=== PATIENT | female | born 1995 | race Caucasian/White ===

== ENCOUNTER → 2017-03-19 | Outpatient (REF) | payer MEDICAID ==
[~2017-03-19] MED LIST: /CELE20CA PO; AMOX875T2 PO; AUGM875T27 PO; BUPR150T3 PO; COLA50CA3 PO; ESCI10TA2 PO; NEUR600T PO; NEXP1IMP SC; OXYC-208 PO
== END ==
LOC: M SFHCWAGY 15:37
PROVIDERS: ATTEND Nurse Practitioner Family
DX: R35.0 Frequency of micturition (principal); N92.1 Excessive and frequent menstruation with irregular cycle

== ENCOUNTER 2017-04-08 03:46 | Emergency (ER) | payer MEDICAID, OTHER ==
[~2017-04-08] VITALS: Ht 162.6 cm; Wt 95.5 kg
[2017-04-08 03:46] VITALS: BP 138/82
== END 2017-04-08 04:45 | disposition home or self-care (01) ==
LOC: M ED 03:46
DX: S69.91XA Unspecified injury of right wrist, hand and finger(s), initial encounter (principal); X58.XXXA Exposure to other specified factors, initial encounter; Y92.099 Unspecified place in other non-institutional residence as the place of occurrence of the external cause; Y93.89 Activity, other specified; Y99.9 Unspecified external cause status; F17.200 Nicotine dependence, unspecified, uncomplicated; Z79.3 Long term (current) use of hormonal contraceptives

== ENCOUNTER 2017-05-02 02:56 | Emergency (ER) | payer OTHER ==
[2017-05-02] MEDS: GI COCKTAIL 50ML BTL(HYOSCYAMINE/MAALOX/LIDOCAINE VISCOUS)(1:3:1) PO (03:52)
== END 2017-05-02 04:24 | disposition home or self-care (01) ==
LOC: M ED 02:56
DX: R10.13 Epigastric pain (principal); K21.9 Gastro-esophageal reflux disease without esophagitis; F17.210 Nicotine dependence, cigarettes, uncomplicated
CPT/HCPCS: 99283

== ENCOUNTER → 2017-05-20 | Outpatient (REF) | payer OTHER | LOC: M LAB REF 15:42 | DX: F41.8 Other specified anxiety disorders (principal) ==

== ENCOUNTER → 2017-06-04 | Outpatient (CLI) | payer OTHER | LOC: M WHC 14:59 | DX: R10.2 Pelvic and perineal pain (principal) | CPT/HCPCS: 76830 ==

== ENCOUNTER 2017-06-09 00:01 | Emergency (ER) | payer OTHER | END 2017-06-09 01:04 | disposition left against medical advice (07) | LOC: M ED 00:01 | DX: S69.90XA Unspecified injury of unspecified wrist, hand and finger(s), initial encounter (principal); X58.XXXA Exposure to other specified factors, initial encounter; Y92.9 Unspecified place or not applicable; Y93.9 Activity, unspecified; Z53.21 Procedure and treatment not carried out due to patient leaving prior to being seen by health care provider ==

== ENCOUNTER → 2017-10-09 | Outpatient (REF) | payer OTHER ==
[2017-10-09 17:08] LABS: TOTAL 25(OH) VITAMIN D 15.4 NG/ML (30.0-100.0)
[2017-10-13 00:11] LABS: TISSUE TRANSGLUTAMINASE IgA <2 U/mL (0-3)
== END ==
LOC: M LAB REF 16:25
DX: E55.9 Vitamin D deficiency, unspecified (principal)

== ENCOUNTER → 2017-10-30 | Outpatient (CLI) | payer OTHER | LOC: M WUC 15:09 | DX: S93.402A Sprain of unspecified ligament of left ankle, initial encounter (principal); X58.XXXA Exposure to other specified factors, initial encounter; Y92.89 Other specified places as the place of occurrence of the external cause; Y93.9 Activity, unspecified; Y92.9 Unspecified place or not applicable | CPT/HCPCS: 73610 ==

== ENCOUNTER 2018-04-17 13:39 | Emergency (ER) | payer OTHER ==
[2018-04-17 14:31] LABS: HEMATOCRIT 48.8 % (36.0-47.0); HEMOGLOBIN 16.7 g/dl (12.0-15.5); MEAN CORPUSCULAR HEMOGLOBIN 29.9 pg (27.0-33.0); MEAN CORPUSCULAR HGB CONC 34.2 g/dl (32.0-36.5); MEAN CORPUSCULAR VOLUME 87.3 fl (80.0-96.0); PLATELET COUNT, AUTOMATED 314 10^3/uL (150-450); RED BLOOD COUNT 5.59 10^6/uL (4.00-5.40); RED CELL DISTRIBUTION WIDTH 13.4 % (11.5-14.5); WHITE BLOOD COUNT 13.6 10^3/uL (4.0-10.0)
[2018-04-17 14:56] LABS: ANION GAP 12 MEQ/L (8-16); BLOOD UREA NITROGEN 8 MG/DL (7-18); CALCIUM LEVEL 8.8 MG/DL (8.5-10.1); CARBON DIOXIDE LEVEL 23 MEQ/L (21-32); CHLORIDE LEVEL 105 MEQ/L (98-107); CPK CREATINE PHOSPHOKINASE 469 U/L (26-192); CREATININE FOR GFR 0.71 MG/DL (0.55-1.30); GLOMERULAR FILTRATION RATE > 60.0 (>60); GLUCOSE, FASTING 86 MG/DL (70-100); HCG, SERUM QUANTITATIVE < 1.0 MIU/ML; POTASSIUM SERUM 3.6 MEQ/L (3.5-5.1); SODIUM LEVEL 140 MEQ/L (136-145)
[2018-04-17] MEDS: NS 1,000 ML IV (15:31)
[2018-04-17] MEDS: KETOROLAC 30 MG/ML VIAL (J1885) IV (15:31)
== END 2018-04-17 17:34 | disposition home or self-care (01) ==
LOC: M ED 13:39
DX: T79.6XXA Traumatic ischemia of muscle, initial encounter (principal); Y04.8XXA Assault by other bodily force, initial encounter; Y92.008 Other place in unspecified non-institutional (private) residence as the place of occurrence of the external cause; Y07.499 Other family member, perpetrator of maltreatment and neglect; F33.9 Major depressive disorder, recurrent, unspecified; E55.9 Vitamin D deficiency, unspecified; Z79.3 Long term (current) use of hormonal contraceptives; Z79.899 Other long term (current) drug therapy; F17.210 Nicotine dependence, cigarettes, uncomplicated
CPT/HCPCS: J1885

== ENCOUNTER → 2018-08-30 | Outpatient (CLI) | payer OTHER ==
[~2018-08-30] MED LIST changes: -/CELE20CA PO; +CELE1CAP4 PO; +DEBL1TAB; +IBUP-1022 PO; +OMEP40CA2 PO; +TRAZ-160
== END ==
LOC: M LAB 15:19
PROVIDERS: ATTEND Nurse Practitioner Adult Health
DX: N92.5 Other specified irregular menstruation (principal)

== ENCOUNTER → 2018-10-15 | Outpatient (REF) | payer OTHER ==
[~2018-10-15] MED LIST changes: -TRAZ-160; +TRAZ-252
[2018-10-15 17:54] LABS: CHLAMYDIA DNA AMPLIFICATION NEGATIVE (NEGATIVE); GC DNA AMPLIFICATION NEGATIVE (NEGATIVE)
== END ==
LOC: M SFHCWAGY 14:44
PROVIDERS: ATTEND Nurse Practitioner Family
DX: Z11.3 Encounter for screening for infections with a predominantly sexual mode of transmission (principal)

== ENCOUNTER 2018-12-02 11:43 | Emergency (ER) | payer OTHER ==
[~2018-12-02] VITALS: Ht 160 cm; Wt 114.8 kg
[2018-12-02] MEDS ORDERED: GABA-843 (11:51)
[2018-12-02] MEDS ORDERED: NS 1,000 ML IV ONE (12:15)
[2018-12-02 12:38] LABS: BILIRUBIN, URINE MANUAL N (NEGATIVE); GLUCOSE, URINE (UA) MANUAL N mg/dL (NEGATIVE); KETONE, URINE MANUAL 2+ mg/dL (NEGATIVE); UROBILINOGEN, URINE MANUAL N mg/dl (NORMAL)
[2018-12-02 12:41] LABS: BACTERIA, URINE NONE SEEN; RBC, URINE NONE SEEN /hpf (0-3); SQUAMOUS EPITHELIAL CELL URINE SMALL AMOUNT /hpf (SMALL AMT)
[2018-12-02 12:42] LABS: HYALINE CAST, URINE NONE SEEN /lpf (0-1); MUCUS, URINE SMALL AMOUNT (NEGATIVE)
[2018-12-02 12:56] LABS: HEMATOCRIT 39.7 % (36.0-47.0); HEMOGLOBIN 13.5 g/dl (12.0-15.5); MEAN CORPUSCULAR HEMOGLOBIN 29.3 pg (27.0-33.0); MEAN CORPUSCULAR VOLUME 86.3 fl (80.0-96.0); PLATELET COUNT, AUTOMATED 188 10^3/uL (150-450); WHITE BLOOD COUNT 12.7 10^3/uL (4.0-10.0)
[2018-12-02 13:04] LABS: ALBUMIN 3.1 GM/DL (3.2-5.2); BILIRUBIN,DIRECT 0.2 MG/DL (0.0-0.2); BILIRUBIN,TOTAL 0.4 MG/DL (0.2-1.0); TOTAL PROTEIN 6.5 GM/DL (6.4-8.2)
[2018-12-02 13:38] LABS: ANISOCYTOSIS 1+; ATYPICAL LYMPH 5 % (0-5); LYMPHOCYTES 47 % (16-52); MONOCYTES 3 % (0-8); NEUTROPHILS 43 % (35-75); PLATELET ESTIMATE NORMAL (NORMAL)
--- NOTE | 2018-12-02 13:51 | REP ---
Clinical: Upper abdominal pain. Technique: Real time maya scale ultrasound examination using curved array transducer. Findings: Liver and visualized pancreas are normal in contour, size, echogenicity without focal hepatic or pancreatic lesion identified. The gallbladder is moderately distended without gallstones, wall thickening, or pericholecystic fluid. No biliary ductal dilatation is appreciated and the common bile duct measures 2.7 mm diameter. The right kidney is normal in reniform shape and measures 10.2 x 4.3 x 5.5 cm without hydronephrosis. No ascites in the visualized right upper quadrant. Impression: Essentially normal right upper quadrant ultrasound examination. Electronically Signed by Jayden Norris MD 12/02/2018 01:43 P
[2018-12-02] MEDS ORDERED: ISOVUE-370 76% 100ML VIAL (Q9967) As Ordered ONE (14:13)
--- NOTE | 2018-12-02 14:40 | REP ---
Clinical: Acute abdominal pain. Technique: Axial contrast enhanced images from the lung bases to the pubic symphysis using 100 ml Isovue 370 intravenous contrast material with coronal and sagittal re-formations. Comparison: 06/29/2013. Findings: Lung bases are clear. Visualized heart and pericardium normal. Mild fatty infiltration to the liver. Spleen, pancreas, gallbladder, bilateral adrenal glands and kidneys are normal. The enteric system is without obstruction or acute inflammatory process. Scattered colonic diverticula noted without acute diverticulitis. Pelvis demonstrates normal bladder and age-appropriate uterus/adnexa. No ascites. No free air. No adenopathy. Abdominal aorta and vasculature normal. Surrounding musculoskeletal structures are intact. Impression: No acute abdominopelvic pathology appreciated. Hepatic steatosis. Electronically Signed by Jayden Norris MD 12/02/2018 02:31 P
[2018-12-02] MEDS ORDERED: OMEP40CA2 PO (15:34)
[2018-12-02 15:42] VITALS: BP 123/78
== END 2018-12-02 15:44 | disposition home or self-care (01) ==
LOC: M ED 11:43
DX: R10.13 Epigastric pain (principal); J45.909 Unspecified asthma, uncomplicated; F33.9 Major depressive disorder, recurrent, unspecified; K21.9 Gastro-esophageal reflux disease without esophagitis; K76.0 Fatty (change of) liver, not elsewhere classified; Z79.899 Other long term (current) drug therapy; F17.210 Nicotine dependence, cigarettes, uncomplicated
CPT/HCPCS: 74177; 76705; 80047; 80076; 81000; 83690; 84702; 85025; 87086; 96360; 96361; 99284; Q9967

== ENCOUNTER → 2018-12-06 | Outpatient (REF) | payer OTHER ==
[~2018-12-06] MED LIST changes: +GABA-843
[2018-12-06 20:50] LABS: CHLAMYDIA DNA AMPLIFICATION NEGATIVE (NEGATIVE); GC DNA AMPLIFICATION NEGATIVE (NEGATIVE)
== END ==
LOC: M LAB REF 16:45
PROVIDERS: ATTEND Nurse Practitioner Adult Health
DX: N89.8 Other specified noninflammatory disorders of vagina (principal)

== ENCOUNTER → 2019-05-28 | Outpatient (REF) | payer OTHER ==
[~2019-05-28] MED LIST changes: -OMEP40CA2 PO; +OMEP40CA97 PO
== END ==
LOC: M LAB REF 19:18
PROVIDERS: ATTEND Physician Assistant
DX: J02.9 Acute pharyngitis, unspecified (principal)

== ENCOUNTER → 2019-06-17 | Outpatient (REF) | payer OTHER ==
[2019-06-17 18:47] LABS: CHLAMYDIA DNA AMPLIFICATION NEGATIVE (NEGATIVE); GC DNA AMPLIFICATION NEGATIVE (NEGATIVE)
== END ==
LOC: M WHC 16:48
PROVIDERS: ATTEND Nurse Practitioner Family
DX: Z11.3 Encounter for screening for infections with a predominantly sexual mode of transmission (principal)

== ENCOUNTER → 2019-12-28 | Outpatient (CLI) | payer OTHER ==
[~2019-12-28] MED LIST changes: +FLUTISP; -GABA-843; +GABA-843 PO; +NORG1TAB33 PO; +PANT40TA29 PO
== END ==
LOC: M OUTALCOH 08:07
PROVIDERS: ATTEND Psychiatry & Neurology Addiction Medicine
DX: Z03.89 Encounter for observation for other suspected diseases and conditions ruled out (principal)

== ENCOUNTER 2020-01-04 13:55 | Outpatient (RCR) | payer MEDICAID ==
[~2020-01-04 13:55] MED LIST changes: -FLUTISP; -NORG1TAB33 PO; -PANT40TA29 PO
[2020-02-14] MEDS ORDERED: FLUTISP (09:41)
[2020-02-14] MEDS ORDERED: NORG1TAB33 PO (09:41)
[2020-02-14] MEDS ORDERED: PANT40TA29 PO (09:41)
== END 2020-02-01 ==
LOC: M OUTALCOH 13:55
PROVIDERS: ATTEND Psychiatry & Neurology Addiction Medicine
DX: Z03.89 Encounter for observation for other suspected diseases and conditions ruled out (principal)

== ENCOUNTER → 2020-02-16 | Outpatient (CLI) | payer MEDICAID ==
[~2020-02-16] MED LIST changes: +FLUTISP; +NORG1TAB33 PO; +PANT40TA29 PO
== END ==
LOC: M LABSMTC 11:53
PROVIDERS: ATTEND Anesthesiology
DX: Z01.812 Encounter for preprocedural laboratory examination (principal); Z20.828 Contact with and (suspected) exposure to other viral communicable diseases
CPT/HCPCS: C9803; U0003

== ENCOUNTER 2020-02-21 14:34 | Day surgery (SDC) | payer MEDICAID, OTHER ==
[~2020-02-21] VITALS: Ht 162.6 cm; Wt 117.0 kg
[~2020-02-21 14:34] MED LIST changes: +LIDOCAINE 2% 100MG/5ML SDV (FOR ANES.) As Ordered ONE; +NS 1,000 ML IV ONE; +propofoL 200 MG/20 ML VIAL As Ordered ONE
[2020-02-21] MEDS ORDERED: fentaNYL 100 MCG/2 ML INJECTION (J3010) As Ordered ONE (16:20)
[2020-02-21] MEDS ORDERED: ONDANSETRON 4MG/2ML VIAL As Ordered ONE (16:32)
--- NOTE | 2020-02-21 16:49 | ROOR ---
Patient Name: Lela Hanson Procedure Date: 02/21/2020 4:17 PM Date of : 1995 Age: 24 Room: [facility] Gender: Female Note Status: Finalized Procedure: Upper GI endoscopy Indications: Dyspepsia, Suspected gastro-esophageal reflux disease Providers: Lai Deluna MD Referring MD: Geena VILLARREAL NP Requesting Provider: Medicines: Monitored Anesthesia Care Complications: No immediate complications. Procedure: Pre-Anesthesia Assessment: - Prior to the procedure, a History and Physical was performed, and patient medications and allergies were reviewed. The patient is competent. The risks and benefits of the procedure and the sedation options and risks were discussed with the patient. All questions were answered and informed consent was obtained. Patient identification and proposed procedure were verified by the physician and the nurse in the procedure room. Mental Status Examination: alert and oriented. Airway Examination: normal oropharyngeal airway and neck mobility. Respiratory Examination: clear to auscultation. CV Examination: normal. Prophylactic Antibiotics: The patient does not require prophylactic antibiotics. Prior Anticoagulants: The patient has taken no previous anticoagulant or antiplatelet agents. ASA Grade Assessment: II - A patient with mild systemic disease. After reviewing the risks and benefits, the patient was deemed in satisfactory condition to undergo the procedure. The anesthesia plan was to use monitored anesthesia care (MAC). Immediately prior to administration of medications, the patient was re-assessed for adequacy to receive sedatives. The heart rate, respiratory rate, oxygen saturations, blood pressure, adequacy of pulmonary ventilation, and response to care were monitored throughout the procedure. The physical status of the patient was re-assessed after the procedure. The Endoscope was introduced through the mouth, and advanced to the second part of duodenum. The upper GI endoscopy was accomplished without difficulty. The patient tolerated the procedure well. Findings: The Z-line was irregular and was found 38 cm from the incisors. Scattered mild inflammation characterized by erythema and granularity was found in the gastric antrum. Biopsies were taken with a cold forceps for Helicobacter pylori testing. Verification of patient identification for the specimen was done by the physician and nurse using the patient's name, date and medical record number. Estimated blood loss was minimal. No gross lesions were noted in the duodenal bulb, in the second portion of the duodenum and in the area of the papilla. Biopsies for histology were taken with a cold forceps for evaluation of celiac disease. Impression: - Z-line irregular, 38 cm from the incisors. - Gastritis. Biopsied. - No gross lesions in the duodenal bulb, in the second portion of the duodenum and in the area of the papilla. Biopsied. Recommendation: - Patient has a contact number available for emergencies. The signs and symptoms of potential delayed complications were discussed with the patient. Return to normal activities tomorrow. Written discharge instructions were provided to the patient. - High fiber diet. - Continue present medications. - Await pathology results. - Follow an antireflux regimen. - Telephone GI clinic for pathology results in 2 weeks. - Return to primary care physician. Lai Deluna MD Lai Deluna MD 02/21/2020 4:48:42 PM Electronically signed by Lai Deluna MD Number of Addenda: 0 Note Initiated On: 02/21/2020 4:17 PM Estimated Blood Loss: Estimated blood loss was minimal.
[2020-02-21 17:15] VITALS: BP 129/78
== END 2020-02-21 17:14 | disposition home or self-care (01) ==
LOC: M OPP 14:34
PROVIDERS: ATTEND Internal Medicine Gastroenterology
DX: K22.8 Other specified diseases of esophagus (principal); K29.70 Gastritis, unspecified, without bleeding; R10.13 Epigastric pain; F17.210 Nicotine dependence, cigarettes, uncomplicated; Z79.899 Other long term (current) drug therapy
CPT/HCPCS: 43239; 88305; J2405; J3010

== ENCOUNTER → 2020-06-26 | Outpatient (REF) | payer OTHER ==
[~2020-06-26] MED LIST changes: -BUPR150T3 PO; +BUPR150T4 PO; +ESCI10TA16 PO; -ESCI10TA2 PO; +GABA-282 PO; -GABA-843 PO; -LIDOCAINE 2% 100MG/5ML SDV (FOR ANES.) As Ordered ONE; -NS 1,000 ML IV ONE; -propofoL 200 MG/20 ML VIAL As Ordered ONE
[2020-06-26 19:50] LABS: HEPATITIS C VIRUS ABY INDEX < 0.0 INDEX (<0.8); HIV 1&2 SCREEN CENTAUR NEGATIVE (NEGATIVE)
[2020-06-26 19:56] LABS: CHLAMYDIA DNA AMPLIFICATION NEGATIVE (NEGATIVE); GC DNA AMPLIFICATION NEGATIVE (NEGATIVE)
== END ==
LOC: M PLALAB 15:17
PROVIDERS: ATTEND Nurse Practitioner Family
DX: Z11.3 Encounter for screening for infections with a predominantly sexual mode of transmission (principal)

== ENCOUNTER → 2020-07-25 | Outpatient (REF) | payer OTHER ==
[~2020-07-25] MED LIST changes: +BUPR150T12 PO; -BUPR150T4 PO
== END ==
LOC: M PLALAB 15:21 → M SFHCWAGY 15:21
PROVIDERS: ATTEND Nurse Practitioner Family
DX: N92.6 Irregular menstruation, unspecified (principal)

== ENCOUNTER → 2020-08-10 | Outpatient (REF) | payer OTHER ==
[2020-08-10 18:12] LABS: BASO % 0.3 % (0.0-1.0); EOS # 0.3 10^3/uL (0.0-0.5); EOS % 2.4 % (0.0-3.0); HEMATOCRIT 45.7 % (36.0-47.0); HEMOGLOBIN 14.9 g/dl (12.0-15.5); LYMPH # 4.1 10^3/uL (1.5-5.0); LYMPH % 34.7 % (24.0-44.0); MEAN CORPUSCULAR HEMOGLOBIN 29.7 pg (27.0-33.0); MEAN CORPUSCULAR HGB CONC 32.6 g/dl (32.0-36.5); MONO # 0.6 10^3/uL (0.0-0.8); MONO % 4.9 % (2.0-8.0); NEUTROPHILS # 6.8 10^3/uL (1.5-8.5); NEUTROPHILS % 57.4 % (36.0-66.0); PLATELET COUNT, AUTOMATED 320 10^3/uL (150-450); RED BLOOD COUNT 5.02 10^6/uL (4.00-5.40); WHITE BLOOD COUNT 11.8 10^3/uL (4.0-10.0)
[2020-08-10 18:44] LABS: ALBUMIN 3.8 GM/DL (3.2-5.2); ALT/SGPT 21 U/L (12-78); BILIRUBIN,TOTAL 0.2 MG/DL (0.2-1.0); BLOOD UREA NITROGEN 10 MG/DL (7-18); CARBON DIOXIDE LEVEL 26 MEQ/L (21-32); CHLORIDE LEVEL 109 MEQ/L (98-107); CREATININE FOR GFR 0.57 MG/DL (0.55-1.30); GLOMERULAR FILTRATION RATE > 60.0 (>60); GLUCOSE, FASTING 76 MG/DL (70-100); POTASSIUM SERUM 4.3 MEQ/L (3.5-5.1); SODIUM LEVEL 140 MEQ/L (136-145)
[2020-08-10 19:38] LABS: H PYLORI QUALITATIVE IgG DETECTED (NEGATIVE)
== END ==
LOC: M LAB REF 17:01
PROVIDERS: ATTEND Physician Assistant
DX: R10.13 Epigastric pain (principal)

== ENCOUNTER → 2021-02-14 | Outpatient (CLI) | payer OTHER ==
[~2021-02-14] MED LIST changes: +FAMO40TA3 PO; +OMEP40CA4 PO; -OMEP40CA97 PO
== END ==
LOC: M LABSMTC 09:28
PROVIDERS: ATTEND Anesthesiology
DX: Z01.812 Encounter for preprocedural laboratory examination (principal); Z20.822 Contact with and (suspected) exposure to COVID-19

== ENCOUNTER 2021-02-18 11:54 | Day surgery (SDC) | payer OTHER ==
[~2021-02-18] VITALS: Ht 162.6 cm; Wt 92.0 kg
[~2021-02-18 11:54] MED LIST changes: +NS 1,000 ML IV ONE
--- OUTSIDE RECORDS SUMMARY | 2021-02-18 12:05 | CCD | Continuity of Care Document ---
Author Author Lela VARELA M.D. Organization Unknown Address [address], [address] [place] [address] Phone [phone] Care Team Providers Care [employer] Name Role Phone Geena Oscar AUTM [phone] [facility] Audiology AUTM [phone] Ann Naylor P.A.-C. AUTM Problems Active Problems Provider Date Chronic otitis media Henry Pena MD Onset: 11/07/2013 Unilateral conductive hearing loss Henry Pena MD Ons et: 11/07/2013 Chronic mucoid otitis media Henry Pena MD Onset: 10/2013 Deviated nasal septum Henry Pena MD Onset: 4 Central perforation of tympanic membrane DENISE Peace II Onset: 02/20/2014 Otorrhea Stephen Matt II, PA-C Onset: 02/20/2014 Eustachian tube disorder Roland Boucher MD Onset: 02/23/20 18 Tobacco use Roland Boucher MD Onset: 02/22/2018 Social History Type Date Description Comments Sex Unknown Tobacco Use Start: Unknown currently smokes 1/2 Pack Daily Smokeless Tobacco Never Used Smokeless Tobacco ETOH Use Denies alcohol use Tobacco Use Start: Unknown Smokes 1/2 Pack A Day Recreational Drug Use Denies Drug Use Allergies, Adverse Reactions, Alerts Description No Known Drug Allergies Medications Active Medications SIG Qnty Indications Ordering Provide r Date Sucralfate 1gm Tablets 1tab p o bid Unknown Pantoprazole Sodium 40mg Tablets D R twice daily -- one tablet in morning 1/2 hour before breakfast and one tablet prior to bedtime. total course 3 months. 60tabs Lai Lockhart ala, M.D. Gabapentin 600mg Tablets 1tab po tid Unknown Immunizations Description No Information Available Vital Signs Date Vital Result Comment 12/26/2019 10:55am BP Systolic 134 mmHg BP Diastolic 78 mmHg Height 64 inches 5'4" Weight 252.00 lb BMI (Body Mass Index) 43.3 kg/m2 [place] Body Weight 120 lb Weight 114.307 kg BSA (Body Surface Area) 2.16 m2 02/22/2018 10:10am Height 63 inches 5'3" Weight 240.00 lb BMI (Body Mass Index) 42.5 kg/m2 [place] Body Weight 115 lb Weight 108.864 kg BSA (Body Surface Area) 2.09 m2 Results Description No Information Available Procedures Description No Information Available Medical Devices Description No Information Available Encounters Description No Information Available Assessments Description No Information Available Plan of Treatment 12/26/2019 - Lai Varela M.D.* K21.0 Gastro-esophageal reflux disease with esophagitis * R10.13 Epigastric pain * * New Orders:* Endoscopy, Ordered: 12/26/19 * Comments:* Impression:-- Chronic acid reflux with worsening symptoms and dyspepsia -- need to r/o GERD with Esophagitis vs Esophageal ulcers vs PUD vs H. pylori vs celiac disease. * Recommendations:* -- Patient educated on the differential diagnoses in detail and all questions answered. 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 -- Anti reflux measures reinforced; Advised to avoid being overweight/obese; avoid acid reflux inducing food: excessive caffeine, chocolate, alcohol, peppermint and fatty foods; , Avoid large and late meal: eating three or more hours before bedtime. Printed material provided to patient. -- Will schedule for EGD. The procedure, its indications, risks (bleeding, perforation, infection, hypotension, respiratory depression, allergy, need for endotracheal intubation, surgery, or even ), benefits, limitations (e.g., missing a lesion), and the alternatives (radiographic studies) were explained to the patient who understood and agreed for the test.. -- Post procedure appointment based on EGD findings. -- Follow up with PMD for routine medical care and other age appropriate health maintenance. Functional Status Description No Information Available Mental Status Description No Information Available Referrals Refer to Reason for Referral Status Appt Date Lai Varela M.D. B96.81 HELICOBACTER PYLORI CAUSE OF DISEASES CLASSIFIED ELSEWHERE Created [facility] [address], [place] [address] [phone]
--- OUTSIDE RECORDS SUMMARY | 2021-02-18 12:05 | CCD | Continuity of Care Document ---
Author Author Lela VARELA M.D. Organization Unknown Address [address], [address] [place] [address] Phone [phone] Care Team Providers Care [employer] Manager Name Role Phone Geena Oscar AUTM [phone] [facility] Audiology AUTM [phone] Ann Naylor P.A.-C. AUTM [phone] Problems Active Problems Provider Date Chronic otitis [...] SIG Qnty Indications Ordering Provide r Date Pylera [phone] Capsules 3 caps by mouth together, four times a day for 10 days course.(for h. pylori. take after eating to avoid stomach upset) 120caps B96.81 Lai murray M.D. 12/24/2020 Pantoprazole Sodium 40mg Tablets D R twice daily -- one tablet in morning 1/2 hour before breakfast and one tablet prior to bedtime. total course 3 months. 60tabs Lai Lockhart ala, M.D. Gabapentin 600mg Tablets 1tab po tid Unknown Immunizations Description No Information Available Vital Signs Date Vital Result Comment 12/24/2020 4:24pm BP Systolic 120 mmHg BP Diastolic 66 mmHg Height 64 inches 5'4" Weight 200.00 lb BMI (Body Mass Index) 34.3 kg/m2 [place] Body Weight 120 lb Weight 90.720 kg BSA (Body Surface Area) 1.96 m2 12/26/2019 10:55am BP Systolic 134 mmHg BP Diastolic 78 mmHg Height 64 inches 5'4" Weight 252.00 lb BMI (Body Mass Index) 43.3 kg/m2 [place] Body Weight 120 lb Weight 114.307 kg BSA (Body Surface Area) 2.16 m2 Results Description No Information Available Procedures Date Code Description Status 12/24/2020 413[address] Office/Outpatient New Moderate M DM 45-59 Minutes Completed Medical Devices Description No Information Available Encounters Type Date Location Provider Dx Diagnosis Office Visit 12/24/2020 3:40p [facility] Lai Varela M.D. B96.81 Helicobacter pylori as the c ause of diseases classd elswhr K29.70 Gastritis, unspecified, with out bleeding R10.13 Epigastric pain R19.4 Change in bowel habit Assessments Date Code Description Provider 12/24/2020 B96.81 Helicobacter pylori [H. pylori] as the cause of diseases classified elsewhere Lai Varela M.D. 12/24/2020 K29.70 Gastritis, unspecified, without bleeding Lai Varela M.D. 12/24/2020 R10.13 Epigastric pain Lai Lockhart ala, M.D. 12/24/2020 R19.4 Change in bowel habit Lai Varela M.D. Plan of Treatment Future Appointment(s):* 02/18/2021 2:00 am - Lai Varela M.D. at [facility] 12/24/2020 - Lai Varela M.D.* B96.81 Helicobacter pylori [H. pylori] as the cause of diseases classified elsewhere * K29.70 Gastritis, unspecified, without bleeding * R10.13 Epigastric pain * R19.4 Change in bowel habit * * New Medication:* Pylera 140-125-125 mg * New Orders:* Endoscopy, Ordered: 12/24/20 * Comments:* Impression:-- Chronic acid reflux with worsening symptoms and dyspepsia -- need to r/o GERD with Esophagitis vs Esophageal ulcers vs PUD vs H. pylori vs celiac disease. * Recommendations:* -- Patient educated on the differential diagnoses in detail and all questions answered. -- Will give pylera therapy in view of the persistent symptoms and unclear if patient got the complete therapy/ eradication of H. pylori. -- Educated patient to take pantoprazole 40 mg twice daily for now. 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 -- Anti reflux measures reinforced; -- Will schedule for repeat EGD with biopsies and Colonoscopy. The procedures, indications, risks (bleeding, perforation, infection, hypotension, respiratory depression, allergy, need for endotracheal intubation, surgery, or even ), benefits, limitations (e.g., missing a lesion), and the alternatives (radiographic studies) were explained to the patient who understood and agreed for the tests.. -- Follow up in GI clinic after the above in 4-6 weeks. -- Follow up with PMD for routine medical care and other age appropriate health main tenance. Functional Status Description No Information Available Mental Status Description No Information Available Referrals Refer to Reason for Referral Status Appt Date Lai Varela M.D. B96.81 HELICOBACTER PYLORI CAUSE OF DISEASES CLASSIFIED ELSEWHERE Created [facility] [address], [address] [place] [address] [phone]
--- OUTSIDE RECORDS SUMMARY | 2021-02-18 12:06 | CCD ---
Author Author [facility] Organization [facility] Address Unknown Phone Unavailable Care Team Providers Care Sales Account Coordinator Name Role Phone Oscar, E Geena TIMBER PACKER Unavailable Unavailable Oscar, E Geena TIMBER PACKER Unavailable Unavailable Oscar, E Geena TIMBER PACKER Unavailable Unavailable Oscar, E Geena TIMBER PACKER Unavailable Unavailable Oscar, E Geena TIMBER PACKER Unavailable Unavailable Oscar, E Geena TIMBER PACKER Unavailable Unavailable Oscar, E Geena TIMBER PACKER Unavailable Unavailable Oscar, E Geena TIMBER PACKER Unavailable Unavailable Oscar, E Geena TIMBER PACKER Unavailable Unavailable Oscar, E Geena TIMBER PACKER Unavailable Unavailable Oscar, E Geena TIMBER PACKER Unavailable Unavailable Oscar, E Geena TIMBER PACKER Unavailable Unavailable Oscar, E Geena TIMBER PACKER Unavailable Unavailable Oscar, E Geena TIMBER PACKER Unavailable Unavailable Oscar, E Geena TIMBER PACKER Unavailable Unavailable Oscar, E Geena TIMBER PACKER Unavailable Unavailable Oscar, E Geena TIMBER PACKER Unavailable Unavailable Oscar, E Geena TIMBER PACKER Unavailable Unavailable Oscar, E Geena TIMBER PACKER Unavailable Unavailable Oscar, E Geena TIMBER PACKER Unavailable Unavailable Oscar, E Geena TIMBER PACKER Unavailable Unavailable Oscar, E Geena TIMBER PACKER Unavailable Unavailable Oscar, E Geena TIMBER PACKER Unavailable Unavailable CORRALES, G EDWARD RPA Unavailable Unavailable CORRALES, G EDWARD RPA Unavailable Unavailable CORRALES, G EDWARD RPA Unavailable Unavailable CORRALES, G EDWARD RPA Unavailable Unavailable CORRALES, G EDWARD RPA Unavailable Unavailable CORRALES, G EDWARD RPA Unavailable Unavailable CORRALES, G EDWARD RPA Unavailable Unavailable CORRALES, G EDWARD RPA Unavailable Unavailable CORRALES, G EDWARD RPA Unavailable Unavailable CORRALES, G EDWARD RPA Unavailable Unavailable CORRALES, G EDWARD RPA Unavailable Unavailable CORRALES, G EDWARD RPA Unavailable Unavailable CORRALES, G EDWARD RPA Unavailable Unavailable CORRALES, G EDWARD RPA Unavailable Unavailable CORRALES, G EDWARD RPA Unavailable Unavailable CORRALES, G EDWARD RPA Unavailable Unavailable CORRALES, G EDWARD RPA Unavailable Unavailable CORRALES, G EDWARD RPA Unavailable Unavailable CORRALES, G EDWARD RPA Unavailable Unavailable CORRALES, G EDWARD RPA Unavailable Unavailable CORRALES, G EDWARD RPA Unavailable Unavailable CORRALES, G EDWARD RPA Unavailable Unavailable CORRALES, G EDWARD RPA Unavailable Unavailable CORRALES, G EDWARD RPA Unavailable Unavailable CORRALES, G EDWARD RPA Unavailable Unavailable CORRALES, G EDWARD RPA Unavailable Unavailable CORRALES, G EDWARD RPA Unavailable Unavailable CORRALES, G EDWARD RPA Unavailable Unavailable CORRALES, G EDWARD RPA Unavailable Unavailable CORRALES, G EDWARD RPA Unavailable Unavailable CORRALES, G EDWARD RPA Unavailable Unavailable CORRALES, G EDWARD RPA Unavailable Unavailable CORRALES, G EDWARD RPA Unavailable Unavailable CORRALES, G EDWARD RPA Unavailable Unavailable CORRALES, G EDWARD RPA Unavailable Unavailable Sophie VARELA MD Unavailable Unavailable Sophie VARELA MD Unavailable Unavailable Sophie VARELA MD Unavailable Unavailable Sophie VARELA MD Unavailable Unavailable Sophie VARELA MD Unavailable Unavailable Sophie VARELA MD Unavailable Unavailable Sophie VARELA MD Unavailable Unavailable Sophie VARELA MD Unavailable Unavailable Sophie VARELA MD Unavailable Unavailable Sophie VARELA MD Unavailable Unavailable Sophie VARELA MD Unavailable Unavailable Sophie VARELA MD Unavailable Unavailable Sophie VARELA MD Unavailable Unavailable Sophie VARELA MD Unavailable Unavailable Sophie VARELA MD Unavailable Unavailable Sophie VARELA MD Unavailable Unavailable Sophie VARELA MD Unavailable Unavailable Sophie VARELA MD Unavailable Unavailable Sophie VARELA MD Unavailable Unavailable Sophie VARELA MD Unavailable Unavailable Sophie VARELA MD Unavailable Unavailable Sophie VARELA MD Unavailable Unavailable Sophie VARELA MD Unavailable Unavailable Sophie VARELA MD Unavailable Unavailable Sophie VARELA MD Unavailable Unavailable Sophie VARELA MD Unavailable Unavailable Sophie VARELA MD Unavailable Unavailable Sophie VARELA MD Unavailable Unavailable Sophie VARELA MD Unavailable Unavailable Sophie VARELA MD Unavailable Unavailable Sophie VARELA MD Unavailable Unavailable Sophie VARELA MD Unavailable Unavailable Sophie VARELA MD Unavailable Unavailable Scordo, M Ann PA Unavailable Unavailable Scordo, M Ann PA Unavailable Unavailable Scordo, M Ann PA Unavailable Unavailable Scordo, M Ann PA Unavailable Unavailable Scordo, M Ann PA Unavailable Unavailable Scordo, M Ann PA Unavailable Unavailable Scordo, M Ann PA Unavailable Unavailable Scordo, M Ann PA Unavailable Unavailable Scordo, M Ann PA Unavailable Unavailable Scordo, M Ann PA Unavailable Unavailable Scordo, M Ann PA Unavailable Unavailable Scordo, M Ann PA Unavailable Unavailable Scordo, M Ann PA Unavailable Unavailable Scordo, M Ann PA Unavailable Unavailable Scordo, M Ann PA Unavailable Unavailable Scordo, M Ann PA Unavailable Unavailable Scordo, M Ann PA Unavailable Unavailable Scordo, M Ann PA Unavailable Unavailable Scordo, M Ann PA Unavailable Unavailable Scordo, M Ann PA Unavailable Unavailable Scordo, M Ann PA Unavailable Unavailable Scordo, M Ann PA Unavailable Unavailable Scordo, M Ann PA Unavailable Unavailable Scordo, M Ann PA Unavailable Unavailable Scordo, M Ann PA Unavailable Unavailable Scordo, M Ann PA Unavailable Unavailable Scordo, M Ann PA Unavailable Unavailable Scordo, M Ann PA Unavailable Unavailable Scordo, M Ann PA Unavailable Unavailable Scordo, M Ann PA Unavailable Unavailable Scordo, M Ann PA Unavailable Unavailable Scordo, M Ann PA Unavailable Unavailable Scordo, M Ann PA Unavailable Unavailable Scordo, M Ann PA Unavailable Unavailable Scordo, M Ann PA Unavailable Unavailable Scordo, M Ann PA Unavailable Unavailable Scordo, M Ann PA Unavailable Unavailable Scordo, M Ann PA Unavailable Unavailable Scordo, M Ann PA Unavailable Unavailable Scordo, M Ann PA Unavailable Unavailable Scordo, M Ann PA Unavailable Unavailable Scordo, M Ann PA Unavailable Unavailable Scordo, M Ann PA Unavailable Unavailable Scordo, M Ann PA Unavailable Unavailable Scordo, M Ann PA Unavailable Unavailable Scordo, M Ann PA Unavailable Unavailable Scordo, M Ann PA Unavailable Unavailable Re-disclosure Warning The records that you are about to access may contain information from federally-assisted alcohol or drug abuse programs. If such information is present, then the following federally mandated warning applies: This information has been disclosed to you from records protected by federal confidentiality rules (42 CFR part 2). The federal rules prohibit you from making any further disclosure of this information unless further disclosure is expressly permitted by the written consent of the person to whom it pertains or as otherwise permitted by 42 CFR part 2. A general authorization for the release of medical or other information is NOT sufficient for this purpose. The Federal rules restrict any use of the information to criminally investigate or prosecute any alcohol or drug abuse patient.The records that you are about to access may contain highly sensitive health information, the redisclosure of which is protected by Article 27-F of the [place] Public [facility] law. If you continue you may have access to information: Regarding HIV / AIDS; Provided by facilities licensed or operated by the [facility] Office of Mental Health; or Provided by the [facility] Office for People With Developmental Disabilities. If such information is present, then the following [facility] mandated warning applies: This information has been disclosed to you from confidential records which are protected by state law. State law prohibits you from making any further disclosure of this information without the specific written consent of the person to whom it pertains, or as otherwise permitted by law. Any unauthorized further disclosure in violation of state law may result in a fine or halfway sentence or both. A general authorization for the release of medical or other information is NOT sufficient authorization for further disc losure. Family History Family Member Name Family Member Gender Family Member Status Date o f Status Description Data Source(s) Unknown Unknown Problem [facility] Encounters Encounter Providers Location Date Indications Data Source(s ) Outpatient Attender: ALBA CORRALES [facility] 12/30 09:21:18 PM EDT - 12/30/2020 09:46:51 PM EDT [facility] ([facility] ) Outpatient 12/28/2020 07:29:17 PM EDT [facility] ([facility]) Outpatient Attender: ALBA CORRALES [facility] 12/27 08:31:19 PM EDT - 12/27/2020 10:16:43 PM EDT [facility] ([facility] ) Outpatient Attender: ENOC Thomas/Indra/Kuldeep garcia/Artur 12/24/2020 03:40:00 PM EDT MEDENT ([facility] Ann Naylor PA-C: [address], [facility] [place] [address], Ph. Attender: Ann WALKER [facility] 10/05/2020 12:00:00 AM EDT [facility]ITUS ([facility]) Ann Naylor PA-C: [address], [place] [address], Ph. Attender: Ann WALKER [facility] 08/10/2020 12:00:00 AM EDT GIPSY ([facility]) Ann Naylor PA-C: [address], [place] [address], Ph. Attender: Ann WALKER [facility] 08/10/2020 12:00:00 AM EDT [facility] ([facility]) Unknown [address] [facility] [address] 07/24/2020 12:00:00 AM EDT eCW1 ([facility]) Outpatient [address] [facility] [address] 06/26/2020 12:00:00 AM EST eCW1 ([facility]) Ann Naylor PA-C: [address], [place] [address], Ph. Attender: Ann WALKER [facility] 05/30/2020 12:00:00 AM EST [facility]ITUS ([facility]) Ann Naylor PA-C: [address], [place] [address], Ph. Attender: Ann WALKER [facility] 05/30/2020 12:00:00 AM EST [facility]IT[facility] ([facility]) Ann Naylor PA-C: [address], [place] [address], Ph. Attender: Ann WALKER [facility] 05/30/2020 12:00:00 AM EST [facility]ITUS ([facility]) DIXIE NapolesBC: [address], [place] [address], Ph. Attender: Geena Oscar NP [facility] Medical 05/09/2020 12:00:00 AM EST TITUS ([facility]) DIXIE NapolesBC: [address], [place] [address], Ph. Attender: Geena Oscar NP [facility] Medical 05/09/2020 12:00:00 AM EST [facility]ITUS ([facility]) DIXIE NapolesBC: [address], [place] [address], Ph. Attender: Geena Oscar NP [facility] Medical 05/09/2020 12:00:00 AM EST [facility]ITUS ([facility]) DIXIE NapolesBC: [address], [place] [address], Ph. Attender: Geena Oscar NP [facility] Medical 05/09/2020 12:00:00 AM EST [facility]ITUS ([facility]) Outpatient FP 01/11/2020 03:00:09 PM EDT [facility] Outpatient FP 01/11/2020 01:29:03 PM EDT [facility] Outpatient FP 01/11/2020 12:45:01 PM EDT [facility] Outpatient FP 01/11/2020 11:33:02 AM EDT [facility] Outpatient FP 12/27/2019 10:53:01 AM EDT [facility] Outpatient FP 12/21/2019 02:15:00 PM EDT [facility] Outpatient FP 12/21/2019 11:11:02 AM EDT [facility] Immunizations Vaccine Date Status Description Data Source(s) COVID-19 VACCINE Moderna 06/06/2020 12:00:00 AM EST completed [place] Vaccine Series Complete: YESThis Data wa s Submitted to [facility] Via [facility] [employer]. COVID-19 VACCINE Moderna 05/09/2020 12:00:00 AM EST completed [place] Vaccine Series Complete: NOThis Data was Submitted to [facility] Via [employer]. New in 2011. IIV4 01/11/2020 12:00:00 AM EDT completed 0.5 mL [facility]ITUS ([facility]) New in 2011. IIV4 01/11/2020 12:00:00 AM EDT completed 0.5 mL [facility]IT[facility] ([facility]) Medications Medication Brand Name Start Date Product Form Dose Route Admi nistrative Instructions Pharmacy Instructions Status Indications Reaction Description Data Source(s) Citric Acid 75 MG/ML / Magnesium Oxide 2 1.9 MG/ML / picosulfate sodium 0.0625 MG/ML Oral Solution [Clenpiq] 10 mg-3.5 gram -12 gram/160 mL SOD PICOSULF/MAG OX/CITRIC AC 02/16/2021 12:00:00 AM EDT solution 320 F OLLOW PRE-PROCEDURE INSTRUCTIONS. START DAY BEFORE PROCEDURE FOLLOW PRE-PROCEDURE INSTRUCTIONS. START DAY BEFORE PROCEDURE SOLD: 02/16/2021 [facility] 5 mg 02/16/2021 12:00:00 AM EDT tablet,delayed release (DR/EC) 4 TAKE 4 TABLETS TOGETHER PER BOWEL PREPERATION INSTRUCTIONS TAKE 4 TABLETS TOGETHER PER BOWEL PREPERATION INSTRUCTIONS SOLD: 02/16/2021 [facility] 1 gram 02/14/2021 12:00:00 AM EDT tablet 120 TAKE ONE TABLET BY MOUTH FOUR TIMES A DAY TAKE ONE TABLET BY MOUTH FOUR TIMES A DAY SOLD: 02/16/2021 [facility] Famotidine 40 MG Oral Tablet FAMOTIDINE 02/14/2021 12:00:00 AM EDT tab let 30 TAKE ONE TABLET BY MOUTH AT BEDTIME TAKE ONE TABLET BY MOUTH AT BEDTIME SOLD: 02/16/2021 [facility] bismuth subcitrate 140 MG / Metronidazol e 125 MG / tetracycline hydrochloride 125 MG Oral Capsule [Pylera] 140-125-125 mg BISMUTH/METRONID/TETRACYCLINE 12/31/2020 12:00:00 AM EDT capsule 120 TAKE THREE CAPSULES BY MOUTH FOUR TIMES A DAY FOR 10 DAYS AFTER EATING TAKE THREE CAPSULES BY MOUTH FOUR TIMES A DAY FOR 10 DAYS AFTER EATING SOLD: 01/01/2021 [facility] pantoprazole 40 MG Delayed Release Oral Tablet PANTOPRAZOLE SODIUM 12/29/2020 12:00:00 AM EDT tablet,delayed release (DR/EC) 60 T YAN 1TAB.BY MOUTH IN A.M 30 MINUTES BEFORE BREAKFAST & 1TAB.PRIOR TO BEDTIME TAKE 1TAB.BY MOUTH IN A.M 30 MINUTES BEFORE BREAKFAST & 1TAB.PRIOR TO BEDTIME SOLD: 02/06/2021 [facility] pantoprazole 40 MG Delayed Release Oral Tablet PANTOPRAZOLE SODIUM 12/29/2020 12:00:00 AM EDT tablet,delayed release (DR/EC) 60 T YAN 1TAB.BY MOUTH IN A.M 30 MINUTES BEFORE BREAKFAST & 1TAB.PRIOR TO BEDTIME TAKE 1TAB.BY MOUTH IN A.M 30 MINUTES BEFORE BREAKFAST & 1TAB.PRIOR TO BEDTIME SOLD: 12/29/2020 [facility] bismuth subcitrate 140 MG / Metronidazol e 125 MG / tetracycline hydrochloride 125 MG Oral Capsule [Pylera] Pylera 12/24/2020 12:00:00 AM EDT ORAL active MEDENT ([facility], ) 600 mg 12/20/2020 12:00:00 AM EDT tablet 90 TAKE ONE TABLET BY MOUTH THREE TIMES A DAY TAKE ONE TABLET BY MOUTH THREE TIMES A DAY SOLD: 12/21/2020 [facility] 600 mg 12/20/2020 12:00:00 AM EDT tablet 90 TAKE ONE TABLET BY MOUTH THREE TIMES A DAY TAKE ONE TABLET BY MOUTH THREE TIMES A DAY SOLD: 01/21/2021 [facility] 1 gram 12/14/2020 12:00:00 AM EDT tablet 120 TAKE ONE TABLET BY MOUTH FOUR TIMES A DAY TAKE ONE TABLET BY MOUTH FOUR TIMES A DAY SOLD: 01/17/2021 [facility] 1 gram 12/14/2020 12:00:00 AM EDT tablet 120 TAKE ONE TABLET BY MOUTH FOUR TIMES A DAY TAKE ONE TABLET BY MOUTH FOUR TIMES A DAY SOLD: 12/16/2020 [facility] Famotidine 40 MG Oral Tablet FAMOTIDINE 12/14/2020 12:00:00 AM EDT tab let 30 TAKE 1 TABLET BY MOUTH DAILY AT BEDTIME TAKE 1 TABLET BY MOUTH DAILY AT BEDTIME SOLD: 12/16/2020 [facility] Famotidine 40 MG Oral Tablet FAMOTIDINE 12/14/2020 12:00:00 AM EDT tab let 30 TAKE 1 TABLET BY MOUTH DAILY AT BEDTIME TAKE 1 TABLET BY MOUTH DAILY AT BEDTIME SOLD: 01/17/2021 [facility] Fluticasone propionate 0.05 MG/ACTUAT Metered Dose John al [place] 50 mcg/actuation FLUTICASONE PROPIONATE 11/22/2020 12:00:00 AM EDT spray,suspension 16 SPRAY 2 SPRAYS IN EACH NOSTRIL ONCE DAILY FOR CONGESTION SPRAY 2 SPRAYS IN EACH NOSTRIL ONCE DAILY FOR CONGESTION SOLD: 12/28/2020 [facility] Fluticasone propionate 0.05 MG/ACTUAT Metered Dose John al [place] 50 mcg/actuation FLUTICASONE PROPIONATE 11/22/2020 12:00:00 AM EDT spray,suspension 16 SPRAY 2 SPRAYS IN EACH NOSTRIL ONCE DAILY FOR CONGESTION SPRAY 2 SPRAYS IN EACH NOSTRIL ONCE DAILY FOR CONGESTION SOLD: 11/29/2020 [facility] Fluticasone propionate 0.05 MG/ACTUAT Metered Dose John al [place] 50 mcg/actuation FLUTICASONE PROPIONATE 11/22/2020 12:00:00 AM EDT spray,suspension 16 SPRAY 2 SPRAYS IN EACH NOSTRIL ONCE DAILY FOR CONGESTION SPRAY 2 SPRAYS IN EACH NOSTRIL ONCE DAILY FOR CONGESTION SOLD: 02/06/2021 [facility] pantoprazole 40 MG Delayed Release Oral Tablet PANTOPRAZOLE SODIUM 11/19/2020 12:00:00 AM EDT tablet,delayed release (DR/EC) 90 T YAN ONE TABLET BY MOUTH TWICE A DAY TAKE ONE TABLET BY MOUTH TWICE A DAY SOLD: 11/19/2020 [facility] 600 mg 10/24/2020 12:00:00 AM EDT tablet 90 TAKE 1 TABLET BY MOUTH 3 TIMES A DAY MAXIMUM DAILY DOSE = 3 TABLETS TAKE 1 TABLET BY MOUTH 3 TIMES A DAY MAX IMUM DAILY DOSE = 3 TABLETS SOLD: 10/25/2020 [facility] 600 mg 10/24/2020 12:00:00 AM EDT tablet 90 TAKE 1 TABLET BY MOUTH 3 TIMES A DAY MAXIMUM DAILY DOSE = 3 TABLETS TAKE 1 TABLET BY MOUTH 3 TIMES A DAY MAX IMUM DAILY DOSE = 3 TABLETS SOLD: 11/21/2020 [facility] Famotidine 40 MG Oral Tablet FAMOTIDINE 10/08/2020 12:00:00 AM EDT tab let 30 TAKE ONE TABLET BY MOUTH DAILY AT BEDTIME TAKE ONE TABLET BY MOUTH DAILY AT BEDTIME SOLD: 10/12/2020 [facility] Famotidine 40 MG Oral Tablet FAMOTIDINE 10/08/2020 12:00:00 AM EDT tab let 30 TAKE ONE TABLET BY MOUTH DAILY AT BEDTIME TAKE ONE TABLET BY MOUTH DAILY AT BEDTIME SOLD: 11/11/2020 [facility] 500 mg 10/05/2020 12:00:00 AM EDT tablet 10 TAKE ONE TABLET BY MOUTH EVERY DAY FOR 10 DAYS TAKE ONE TABLET BY MOUTH EVERY DAY FOR 10 DAYS SOLD: [facility] 500 mg 10/05/2020 12:00:00 AM EDT capsule 20 TAKE ONE CAPSULE BY MOUTH EVERY 12 HOURS FOR 10 DAYS TAKE ONE CAPSULE BY MOUTH EVERY 12 HOURS FOR 10 DAYS S OLD: 10/12/2020 [facility] 1 gram 10/05/2020 12:00:00 AM EDT tablet 120 TAKE ONE TABLET BY MOUTH FOUR TIMES A DAY TAKE ONE TABLET BY MOUTH FOUR TIMES A DAY SOLD: 11/11/2020 [facility] 1 gram 10/05/2020 12:00:00 AM EDT tablet 120 TAKE ONE TABLET BY MOUTH FOUR TIMES A DAY TAKE ONE TABLET BY MOUTH FOUR TIMES A DAY SOLD: 10/12/2020 [facility] 600 mg 08/28/2020 12:00:00 AM EDT tablet 90 TAKE ONE TABLET BY MOUTH THREE TIMES A DAY TAKE ONE TABLET BY MOUTH THREE TIMES A DAY SOLD: 08/29/2020 [facility] 600 mg 08/28/2020 12:00:00 AM EDT tablet 90 TAKE ONE TABLET BY MOUTH THREE TIMES A DAY TAKE ONE TABLET BY MOUTH THREE TIMES A DAY SOLD: 09/26/2020 [facility] 1 gram 08/11/2020 12:00:00 AM EDT tablet 120 TAKE ONE TABLET BY MOUTH FOUR TIMES A DAY TAKE ONE TABLET BY MOUTH FOUR TIMES A DAY SOLD: 08/12/2020 [facility] Famotidine 40 MG Oral Tablet FAMOTIDINE 08/11/2020 12:00:00 AM EDT tab let 30 TAKE ONE TABLET BY MOUTH DAILY AT BEDTIME TAKE ONE TABLET BY MOUTH DAILY AT BEDTIME SOLD: 09/11/2020 [facility] Famotidine 40 MG Oral Tablet FAMOTIDINE 08/11/2020 12:00:00 AM EDT tab let 30 TAKE ONE TABLET BY MOUTH DAILY AT BEDTIME TAKE ONE TABLET BY MOUTH DAILY AT BEDTIME SOLD: 08/12/2020 [facility] 1 gram 08/11/2020 12:00:00 AM EDT tablet 120 TAKE ONE TABLET BY MOUTH FOUR TIMES A DAY TAKE ONE TABLET BY MOUTH FOUR TIMES A DAY SOLD: 09/11/2020 [facility] 1 % 08/11/2020 12:00:00 AM EDT gel 30 APPLY A THIN LAYER TOPICALLY TO AFFECTED AREA(S) TWO TIMES A DAY APPLY A THIN LAYER TOPICALLY TO AFFECTED AREA(S) TWO TIMES A DAY SOLD: 08/12/2020 [facility] 1 % 06/21/2020 12:00:00 AM EST gel 30 APPLY A THIN LAYER TOPICALLY TO THE AFFECTED AREA(S) TWO TIMES A DAY APPLY A THIN LAYER TOPICALLY TO THE AFFE CTED AREA(S) TWO TIMES A DAY SOLD: 06/24/2020 [facility] 1 % 06/21/2020 12:00:00 AM EST gel 30 APPLY A THIN LAYER TOPICALLY TO THE AFFECTED AREA(S) TWO TIMES A DAY APPLY A THIN LAYER TOPICALLY TO THE AFFE CTED AREA(S) TWO TIMES A DAY SOLD: 07/31/2020 [facility] 1 % 06/21/2020 12:00:00 AM EST gel 30 APPLY A THIN LAYER TOPICALLY TO THE AFFECTED AREA(S) TWO TIMES A DAY APPLY A THIN LAYER TOPICALLY TO THE AFFE CTED AREA(S) TWO TIMES A DAY SOLD: 07/16/2020 [facility] 0.1 % 05/31/2020 12:00:00 AM EST cream 15 APPLY A THIN LAYER TO THE AFFECTED AREA(S) TWO TIMES A DAY APPLY A THIN LAYER TO THE AFFECTED AREA( S) TWO TIMES A DAY SOLD: 06/01/2020 [facility] 50 mcg/actuation 05/24/2020 12:00:00 AM EST spray,suspension 16 SPRAY TWO SPRAYS IN EACH NOSTRIL EVERY DAY FOR CONGESTION SPRAY TWO SPRAYS IN EACH NOSTRIL EVERY DAY FOR CONGESTION SOLD: 09/26/2020 [facility] 50 mcg/actuation 05/24/2020 12:00:00 AM EST spray,suspension 16 SPRAY TWO SPRAYS IN EACH NOSTRIL EVERY DAY FOR CONGESTION SPRAY TWO SPRAYS IN EACH NOSTRIL EVERY DAY FOR CONGESTION SOLD: 05/31/2020 [facility] 50 mcg/actuation 05/24/2020 12:00:00 AM EST spray,suspension 16 SPRAY TWO SPRAYS IN EACH NOSTRIL EVERY DAY FOR CONGESTION SPRAY TWO SPRAYS IN EACH NOSTRIL EVERY DAY FOR CONGESTION SOLD: 08/29/2020 [facility] 50 mcg/actuation 05/24/2020 12:00:00 AM EST spray,suspension 16 SPRAY TWO SPRAYS IN EACH NOSTRIL EVERY DAY FOR CONGESTION SPRAY TWO SPRAYS IN EACH NOSTRIL EVERY DAY FOR CONGESTION SOLD: 07/31/2020 [facility] 50 mcg/actuation 05/24/2020 12:00:00 AM EST spray,suspension 16 SPRAY TWO SPRAYS IN EACH NOSTRIL EVERY DAY FOR CONGESTION SPRAY TWO SPRAYS IN EACH NOSTRIL EVERY DAY FOR CONGESTION SOLD: 10/25/2020 [facility] 50 mcg/actuation 05/24/2020 12:00:00 AM EST spray,suspension 16 SPRAY TWO SPRAYS IN EACH NOSTRIL EVERY DAY FOR CONGESTION SPRAY TWO SPRAYS IN EACH NOSTRIL EVERY DAY FOR CONGESTION SOLD: 07/02/2020 [facility] pantoprazole 40 MG Delayed Release Oral Tablet PANTOPRAZOLE SODIUM 05/23/2020 12:00:00 AM EST tablet,delayed release (DR/EC) 60 T YAN ONE TABLET BY MOUTH TWICE A DAY TAKE ONE TABLET BY MOUTH TWICE A DAY SOLD: 10/25/2020 [facility] pantoprazole 40 MG Delayed Release Oral Tablet PANTOPRAZOLE SODIUM 05/23/2020 12:00:00 AM EST tablet,delayed release (DR/EC) 60 T YAN ONE TABLET BY MOUTH TWICE A DAY TAKE ONE TABLET BY MOUTH TWICE A DAY SOLD: 09/26/2020 [facility] pantoprazole 40 MG Delayed Release Oral Tablet PANTOPRAZOLE SODIUM 05/23/2020 12:00:00 AM EST tablet,delayed release (DR/EC) 60 T YAN ONE TABLET BY MOUTH TWICE A DAY TAKE ONE TABLET BY MOUTH TWICE A DAY SOLD: 05/24/2020 [facility] pantoprazole 40 MG Delayed Release Oral Tablet PANTOPRAZOLE SODIUM 05/23/2020 12:00:00 AM EST tablet,delayed release (DR/EC) 60 T YAN ONE TABLET BY MOUTH TWICE A DAY TAKE ONE TABLET BY MOUTH TWICE A DAY SOLD: 08/29/2020 [facility] pantoprazole 40 MG Delayed Release Oral Tablet PANTOPRAZOLE SODIUM 05/23/2020 12:00:00 AM EST tablet,delayed release (DR/EC) 60 T YAN ONE TABLET BY MOUTH TWICE A DAY TAKE ONE TABLET BY MOUTH TWICE A DAY SOLD: 07/31/2020 [facility] pantoprazole 40 MG Delayed Release Oral Tablet PANTOPRAZOLE SODIUM 05/23/2020 12:00:00 AM EST tablet,delayed release (DR/EC) 60 T YAN ONE TABLET BY MOUTH TWICE A DAY TAKE ONE TABLET BY MOUTH TWICE A DAY SOLD: 06/24/2020 [facility] 1 % 05/09/2020 12:00:00 AM EST gel 30 APPLY A THIN LAYER TOPICALLY TO THE AFFECTED AREA(S) TWO TIMES A DAY APPLY A THIN LAYER TOPICALLY TO THE AFFE CTED AREA(S) TWO TIMES A DAY SOLD: 06/07/2020 [facility] 500 mg 05/09/2020 12:00:00 AM EST tablet 28 TAKE ONE TABLET BY MOUTH EVERY 12 HOURS TAKE ONE TABLET BY MOUTH EVERY 12 HOURS SOLD: 05/09/2020 [facility] 500 mg 05/09/2020 12:00:00 AM EST capsule 28 TAKE ONE CAPSULE BY MOUTH EVERY 12 HOURS TAKE ONE CAPSULE BY MOUTH EVERY 12 HOURS SOLD: 05/09/2020 [facility] 1 % 05/09/2020 12:00:00 AM EST gel 30 APPLY A THIN LAYER TOPICALLY TO THE AFFECTED AREA(S) TWO TIMES A DAY APPLY A THIN LAYER TOPICALLY TO THE AFFE CTED AREA(S) TWO TIMES A DAY SOLD: 05/09/2020 [facility] 1 % 05/09/2020 12:00:00 AM EST gel 30 APPLY A THIN LAYER TOPICALLY TO THE AFFECTED AREA(S) TWO TIMES A DAY APPLY A THIN LAYER TOPICALLY TO THE AFFE CTED AREA(S) TWO TIMES A DAY SOLD: 05/24/2020 [facility] 1 gram 04/11/2020 12:00:00 AM EST tablet 60 TAKE ONE TABLET BY MOUTH TWICE A DAY TAKE ONE TABLET BY MOUTH TWICE A DAY SOLD: 07/19/2020 [facility] 1 gram 04/11/2020 12:00:00 AM EST tablet 60 TAKE ONE TABLET BY MOUTH TWICE A DAY TAKE ONE TABLET BY MOUTH TWICE A DAY SOLD: 06/24/2020 [facility] 1 gram 04/11/2020 12:00:00 AM EST tablet 60 TAKE ONE TABLET BY MOUTH TWICE A DAY TAKE ONE TABLET BY MOUTH TWICE A DAY SOLD: 05/24/2020 [facility] 1 gram 04/11/2020 12:00:00 AM EST tablet 60 TAKE ONE TABLET BY MOUTH TWICE A DAY TAKE ONE TABLET BY MOUTH TWICE A DAY SOLD: 04/25/2020 [facility] pantoprazole 40 MG Delayed Release Oral Tablet PANTOPRAZOLE SODIUM 02/17/2020 12:00:00 AM EDT tablet,delayed release (DR/EC) 60 T YAN ONE TABLET BY MOUTH TWICE A DAY TAKE ONE TABLET BY MOUTH TWICE A DAY SOLD: 02/19/2020 [facility] 50 mcg/actuation 02/17/2020 12:00:00 AM EDT spray,suspension 16 SPRAY TWO SPRAYS IN EACH NOSTRIL EVERY DAY FOR CONGESTION SPRAY TWO SPRAYS IN EACH NOSTRIL EVERY DAY FOR CONGESTION SOLD: 02/19/2020 [facility] pantoprazole 40 MG Delayed Release Oral Tablet PANTOPRAZOLE SODIUM 02/17/2020 12:00:00 AM EDT tablet,delayed release (DR/EC) 60 T YAN ONE TABLET BY MOUTH TWICE A DAY TAKE ONE TABLET BY MOUTH TWICE A DAY SOLD: 03/19/2020 [facility] 50 mcg/actuation 02/17/2020 12:00:00 AM EDT spray,suspension 16 SPRAY TWO SPRAYS IN EACH NOSTRIL EVERY DAY FOR CONGESTION SPRAY TWO SPRAYS IN EACH NOSTRIL EVERY DAY FOR CONGESTION SOLD: 03/19/2020 [facility] pantoprazole 40 MG Delayed Release Oral Tablet PANTOPRAZOLE SODIUM 02/17/2020 12:00:00 AM EDT tablet,delayed release (DR/EC) 60 T YAN ONE TABLET BY MOUTH TWICE A DAY TAKE ONE TABLET BY MOUTH TWICE A DAY SOLD: 04/25/2020 [facility] 50 mcg/actuation 02/17/2020 12:00:00 AM EDT spray,suspension 16 SPRAY TWO SPRAYS IN EACH NOSTRIL EVERY DAY FOR CONGESTION SPRAY TWO SPRAYS IN EACH NOSTRIL EVERY DAY FOR CONGESTION SOLD: 04/25/2020 [facility] 10 mg-3.5 gram -12 gram/160 mL 02/03/2020 12:00:00 AM EDT so lution 320 FOLLOW PRE-PROCEDURE INSTRUCTIONS START DAY BEFORE PROCEDURE FOLLOW PRE- PROCEDURE INSTRUCTIONS START DAY BEFORE PROCEDURE SOLD: 02/10/2020 [facility] 600 mg 02/02/2020 12:00:00 AM EDT tablet 90 TAKE ONE TABLET BY MOUTH THREE TIMES A DAY TAKE ONE TABLET BY MOUTH THREE TIMES A DAY SOLD: 05/24/2020 [facility] 5 mg 02/02/2020 12:00:00 AM EDT tablet,delayed release (DR/EC) 4 TAKE 4 TABLETS TOGETHER DIRECTED PER BOWEL INSTRUCTIONS TAKE 4 TABLETS TOGETHER DIRECTED PER BOWEL INSTRUCTIONS SOLD: 02/03/2020 [facility] 600 mg 02/02/2020 12:00:00 AM EDT tablet 90 TAKE ONE TABLET BY MOUTH THREE TIMES A DAY TAKE ONE TABLET BY MOUTH THREE TIMES A DAY SOLD: 07/31/2020 [facility] 600 mg 02/02/2020 12:00:00 AM EDT tablet 90 TAKE ONE TABLET BY MOUTH THREE TIMES A DAY TAKE ONE TABLET BY MOUTH THREE TIMES A DAY SOLD: 03/14/2020 [facility] 600 mg 02/02/2020 12:00:00 AM EDT tablet 90 TAKE ONE TABLET BY MOUTH THREE TIMES A DAY TAKE ONE TABLET BY MOUTH THREE TIMES A DAY SOLD: 04/25/2020 [facility] 600 mg 02/02/2020 12:00:00 AM EDT tablet 90 TAKE ONE TABLET BY MOUTH THREE TIMES A DAY TAKE ONE TABLET BY MOUTH THREE TIMES A DAY SOLD: 06/24/2020 [facility] 600 mg 02/02/2020 12:00:00 AM EDT tablet 90 TAKE ONE TABLET BY MOUTH THREE TIMES A DAY TAKE ONE TABLET BY MOUTH THREE TIMES A DAY SOLD: 02/03/2020 [facility] 1 gram 01/12/2020 12:00:00 AM EDT tablet 60 TAKE ONE TABLET BY MOUTH TWICE A DAY TAKE ONE TABLET BY MOUTH TWICE A DAY SOLD: 01/14/2020 [facility] 1 gram 01/12/2020 12:00:00 AM EDT tablet 60 TAKE ONE TABLET BY MOUTH TWICE A DAY TAKE ONE TABLET BY MOUTH TWICE A DAY SOLD: 03/14/2020 [facility] 1 gram 01/12/2020 12:00:00 AM EDT tablet 60 TAKE ONE TABLET BY MOUTH TWICE A DAY TAKE ONE TABLET BY MOUTH TWICE A DAY SOLD: 02/13/2020 [facility] 800 mg 12/27/2019 12:00:00 AM EDT tablet 90 TAKE ONE TABLET BY MOUTH THREE TIMES A DAY NEEDED FOR PAIN TAKE ONE TABLET BY MOUTH THREE TIMES A D AY NEEDED FOR PAIN SOLD: 12/31/2019 [facility] 50 mcg/actuation 11/17/2019 12:00:00 AM EDT spray,suspension 16 SPRAY TWO SPRAYS IN EACH NOSTRIL EVERY DAY FOR CONGESTION SPRAY TWO SPRAYS IN EACH NOSTRIL EVERY DAY FOR CONGESTION SOLD: 12/20/2019 [facility] 50 mcg/actuation 11/17/2019 12:00:00 AM EDT spray,suspension 16 SPRAY TWO SPRAYS IN EACH NOSTRIL EVERY DAY FOR CONGESTION SPRAY TWO SPRAYS IN EACH NOSTRIL EVERY DAY FOR CONGESTION SOLD: 01/20/2020 [facility] 40 mg 11/15/2019 12:00:00 AM EDT tablet,delayed release (DR/EC) 60 TAKE ONE TABLET BY MOUTH TWICE A DAY TAKE ONE TABLET BY MOUTH TWICE A DAY SOLD: 01/20/2020 [facility] 40 mg 11/15/2019 12:00:00 AM EDT tablet,delayed release (DR/EC) 60 TAKE ONE TABLET BY MOUTH TWICE A DAY TAKE ONE TABLET BY MOUTH TWICE A DAY SOLD: 12/20/2019 [facility] 600 mg 11/02/2019 12:00:00 AM EDT tablet 90 TAKE ONE TABLET BY MOUTH THREE TIMES A DAY TAKE ONE TABLET BY MOUTH THREE TIMES A DAY SOLD: 01/07/2020 [facility] Bisacodyl 5 MG Delayed Release Oral Tabl et Gentle Laxative (bisacodyl) 5 mg tablet,delayed release TAKE 4 TABLETS TOGETHER DIRECTED PER BOWEL INSTRUCTIONS Gentle Laxative (bisacodyl) 5 mg tablet, delayed release TAKE 4 TABLETS TOGETHER DIRECTED PER BOWEL INSTRUCTIONS completed bisacodyl 5 MG Delayed Release Oral Tablet GIPSY ([facility]) Amoxicillin 500 MG Oral Capsule amoxicil tommy 500 mg capsule TAKE ONE CAPSULE BY MOUTH EVERY 12 HOURS amoxicillin 500 mg capsule TAKE ONE CAPS ULE BY MOUTH EVERY 12 HOURS completed amoxicillin 5 00 MG Oral Capsule [facility]) Fluconazole 150 MG Oral Tablet fluconazo le 150 mg tablet TAKE 1 TABLET BY MOUTH TODAY AND CAN REPEAT IN 1 WEEK IF SYMPTOMS PERSIST fluconazole 150 mg tablet TAKE 1 TABLET BY MOUTH TODAY AND CAN REPEAT IN 1 WEEK IF SYMPTOMS PERSIST completed fluconazole 150 MG O ral Tablet TITUS ([facility]) Amoxicillin 875 MG Oral Tablet amoxicill in 875 mg tablet TAKE ONE TABLET BY MOUTH EVERY 12 HOURS FOR 10 DAYS amoxicillin 875 mg tablet TAKE ONE TABLE T BY MOUTH EVERY 12 HOURS FOR 10 DAYS compl eted amoxicillin 875 MG Oral Tablet TITUS ([facility]) gabapentin 400 MG Oral Capsule gabapenti n 400 mg capsule TAKE ONE CAPSULE BY MOUTH THREE TIMES A DAY gabapentin 400 mg capsule TAKE ONE CAPSU LE BY MOUTH THREE TIMES A DAY completed jimbo pentin 400 MG Oral Capsule [facility] ([facility]) Amoxicillin 500 MG Oral Tablet amoxicill in 500 mg tablet Take 1 tablet every 12 hours by oral route. amoxicillin 500 mg tablet Take 1 tablet every 12 hours by oral route. 1 completed amoxicilli n 500 MG Oral Tablet GIPSY ([facility]) Clarithromycin 500 MG Oral Tablet clarit hromycin 500 mg tablet TAKE ONE TABLET BY MOUTH EVERY 12 HOURS clarithromycin 500 mg tablet TAKE ONE TA BLET BY MOUTH EVERY 12 HOURS completed clarith romycin 500 MG Oral Tablet [facility] ([facility]) Clenpiq 10 mg-3.5 gram-12 gram/160 mL oral solution [id number] completed citric acid 75 MG/ML / magnesium oxide 21.9 MG/ML / picosulfate sodium 0.0625 MG/ML Oral Solution [Clenpiq] GIPSY ([facility]) Amoxicillin 500 MG Oral Capsule amoxicil tommy 500 mg capsule TAKE ONE CAPSULE BY MOUTH EVERY 12 HOURS amoxicillin 500 mg capsule TAKE ONE CAPS ULE BY MOUTH EVERY 12 HOURS completed amoxicillin 5 00 MG Oral Capsule [facility] ([facility]) Omeprazole 20 MG Delayed Release Oral Ca psule omeprazole 20 mg capsule,delayed release TAKE ONE CAPSULE BY MOUTH EVERY DAY omeprazole 20 mg capsule,delayed release TAKE ONE CAPSULE BY MOUTH EVERY DAY completed omeprazole 20 MG Delayed Release Oral Capsule [facility] ([facility]) Triamcinolone Acetonide 1 MG/ML Topical Cream triamcinolone acetonide 0.1 % topical cream APPLY A THIN LAYER TO THE AFFECTED AREA S TWO TIMES A DAY triamcinolone acetonide 0.1 % topical cream APPLY A THIN LAYER TO THE AFFECTED AREA S TWO TIMES A DAY completed triamcinolone acetonide 1 MG/ML Topical Cream GIPSY ([facility]) Ibuprofen 800 MG Oral Tablet ibuprofen 8 00 mg tablet TAKE ONE TABLET BY MOUTH THREE TIMES A DAY NEEDED FOR PAIN ibuprofen 800 mg tablet TAKE ONE TABLET BY MOUTH THREE TIMES A DAY NEEDED FOR PAIN completed ibuprofen 800 MG Oral Tablet GIP[facility] ([facility]) Fluconazole 150 MG Oral Tablet fluconazo le 150 mg tablet TAKE 1 TABLET BY MOUTH TODAY AND CAN REPEAT IN 1 WEEK IF SYMPTOMS PERSIST fluconazole 150 mg tablet TAKE 1 TABLET BY MOUTH TODAY AND CAN REPEAT IN 1 WEEK IF SYMPTOMS PERSIST completed fluconazole 150 MG O ral Tablet TITUS ([facility]) Ibuprofen 800 MG Oral Tablet ibuprofen 8 00 mg tablet TAKE ONE TABLET BY MOUTH THREE TIMES A DAY NEEDED FOR PAIN ibuprofen 800 mg tablet TAKE ONE TABLET BY MOUTH THREE TIMES A DAY NEEDED FOR PAIN completed ibuprofen 800 MG Oral Tablet GIPSY ([facility]) Amoxicillin 875 MG Oral Tablet amoxicill in 875 mg tablet TAKE ONE TABLET BY MOUTH EVERY 12 HOURS FOR 10 DAYS amoxicillin 875 mg tablet TAKE ONE TABLE T BY MOUTH EVERY 12 HOURS FOR 10 DAYS compl eted amoxicillin 875 MG Oral Tablet GIPSY ([facility]) Amoxicillin 500 MG Oral Tablet amoxicill in 500 mg tablet Take 1 tablet every 12 hours by oral route. amoxicillin 500 mg tablet Take 1 tablet every 12 hours by oral route. 1 completed amoxicilli n 500 MG Oral Tablet GIP[facility] ([facility]) Clarithromycin 500 MG Oral Tablet clarit hromycin 500 mg tablet TAKE ONE TABLET BY MOUTH EVERY 12 HOURS clarithromycin 500 mg tablet TAKE ONE TA BLET BY MOUTH EVERY 12 HOURS completed clarith romycin 500 MG Oral Tablet GIP[facility] ([facility]) Ibuprofen 800 MG Oral Tablet ibuprofen 8 00 mg tablet TAKE ONE TABLET BY MOUTH THREE TIMES A DAY NEEDED FOR PAIN ibuprofen 800 mg tablet TAKE ONE TABLET BY MOUTH THREE TIMES A DAY NEEDED FOR PAIN completed ibuprofen 800 MG Oral Tablet GIPSY ([facility]) Clenpiq 10 mg-3.5 gram-12 gram/160 mL oral solution [id number] completed citric acid 75 MG/ML / magnesium oxide 21.9 MG/ML / picosulfate sodium 0.0625 MG/ML Oral Solution [Clenpiq] GIPSY ([facility]) gabapentin 400 MG Oral Capsule gabapenti n 400 mg capsule TAKE ONE CAPSULE BY MOUTH THREE TIMES A DAY gabapentin 400 mg capsule TAKE ONE CAPSU LE BY MOUTH THREE TIMES A DAY completed jimbo pentin 400 MG Oral Capsule [facility] ([facility]) gabapentin 400 MG Oral Capsule gabapenti n 400 mg capsule TAKE ONE CAPSULE BY MOUTH THREE TIMES A DAY gabapentin 400 mg capsule TAKE ONE CAPSU LE BY MOUTH THREE TIMES A DAY completed jimbo pentin 400 MG Oral Capsule [facility] ([facility]) Omeprazole 20 MG Delayed Release Oral Ca psule omeprazole 20 mg capsule,delayed release TAKE ONE CAPSULE BY MOUTH EVERY DAY omeprazole 20 mg capsule,delayed release TAKE ONE CAPSULE BY MOUTH EVERY DAY completed omeprazole 20 MG Delayed Release Oral Capsule [facility]) Fluconazole 150 MG Oral Tablet fluconazo le 150 mg tablet TAKE 1 TABLET BY MOUTH TODAY AND CAN REPEAT IN 1 WEEK IF SYMPTOMS PERSIST fluconazole 150 mg tablet TAKE 1 TABLET BY MOUTH TODAY AND CAN REPEAT IN 1 WEEK IF SYMPTOMS PERSIST completed fluconazole 150 MG O ral Tablet GIPSY ([facility]) Oseltamivir 75 MG Oral Capsule oseltamivir 75 mg capsu le oseltamivir 75 mg capsule completed oseltamivir 75 MG Oral Capsule [facility]IP[facility] ([facility]) Oseltamivir 75 MG Oral Capsule oseltamivir 75 mg capsu le oseltamivir 75 mg capsule completed oseltamivir 75 MG Oral Capsule [facility] ([facility]) gabapentin 400 MG Oral Capsule gabapenti n 400 mg capsule TAKE ONE CAPSULE BY MOUTH THREE TIMES A DAY gabapentin 400 mg capsule TAKE ONE CAPSU LE BY MOUTH THREE TIMES A DAY completed jimbo pentin 400 MG Oral Capsule [facility]) Clenpiq 10 mg-3.5 gram-12 gram/160 mL oral solution [id number] completed citric acid 75 MG/ML / magnesium oxide 21.9 MG/ML / picosulfate sodium 0.0625 MG/ML Oral Solution [Clenpiq] GIPSY ([facility]) Amoxicillin 875 MG Oral Tablet amoxicill in 875 mg tablet TAKE ONE TABLET BY MOUTH EVERY 12 HOURS FOR 10 DAYS amoxicillin 875 mg tablet TAKE ONE TABLE T BY MOUTH EVERY 12 HOURS FOR 10 DAYS compl eted amoxicillin 875 MG Oral Tablet GIPSY ([facility]) Tri-Lo-Brittney 0.18/0.215/0.25 mg-25 mcg tablet TAKE ONE TABLET BY MOUTH EVERY DAY [id number] completed Tri-Lo-Brittney 0.1 8/0.215/0.25 mg-25 mcg tablet GIP[facility] ([facility]) Oseltamivir 75 MG Oral Capsule oseltamivir 75 mg capsu le oseltamivir 75 mg capsule completed oseltamivir 75 MG Oral Capsule [facility] ([facility]) Bisacodyl 5 MG Delayed Release Oral Tabl et Gentle Laxative (bisacodyl) 5 mg tablet,delayed release TAKE 4 TABLETS TOGETHER DIRECTED PER BOWEL INSTRUCTIONS Gentle Laxative (bisacodyl) 5 mg tablet, delayed release TAKE 4 TABLETS TOGETHER DIRECTED PER BOWEL INSTRUCTIONS completed bisacodyl 5 MG Delayed Release Oral Tablet TITUS ([facility]) Omeprazole 20 MG Delayed Release Oral Ca psule omeprazole 20 mg capsule,delayed release TAKE ONE CAPSULE BY MOUTH EVERY DAY omeprazole 20 mg capsule,delayed release TAKE ONE CAPSULE BY MOUTH EVERY DAY completed omeprazole 20 MG Delayed Release Oral Capsule GIPSY ([facility]) Clarithromycin 500 MG Oral Tablet clarit hromycin 500 mg tablet TAKE ONE TABLET BY MOUTH EVERY 12 HOURS clarithromycin 500 mg tablet TAKE ONE TA BLET BY MOUTH EVERY 12 HOURS completed clarith romycin 500 MG Oral Tablet [facility] ([facility]) Amoxicillin 875 MG Oral Tablet amoxicill in 875 mg tablet TAKE ONE TABLET BY MOUTH EVERY 12 HOURS FOR 10 DAYS amoxicillin 875 mg tablet TAKE ONE TABLE T BY MOUTH EVERY 12 HOURS FOR 10 DAYS compl eted amoxicillin 875 MG Oral Tablet GIP[facility] ([facility]) Amoxicillin 500 MG Oral Capsule amoxicil tommy 500 mg capsule TAKE ONE CAPSULE BY MOUTH EVERY 12 HOURS amoxicillin 500 mg capsule TAKE ONE CAPS ULE BY MOUTH EVERY 12 HOURS completed amoxicillin 5 00 MG Oral Capsule [facility]IP[facility] ([facility]) Bisacodyl 5 MG Delayed Release Oral Tabl et Gentle Laxative (bisacodyl) 5 mg tablet,delayed release TAKE 4 TABLETS TOGETHER DIRECTED PER BOWEL INSTRUCTIONS Gentle Laxative (bisacodyl) 5 mg tablet, delayed release TAKE 4 TABLETS TOGETHER DIRECTED PER BOWEL INSTRUCTIONS completed bisacodyl 5 MG Delayed Release Oral Tablet GIPSY ([facility]) Ibuprofen 800 MG Oral Tablet ibuprofen 8 00 mg tablet TAKE ONE TABLET BY MOUTH THREE TIMES A DAY NEEDED FOR PAIN ibuprofen 800 mg tablet TAKE ONE TABLET BY MOUTH THREE TIMES A DAY NEEDED FOR PAIN completed ibuprofen 800 MG Oral Tablet GIP[facility] ([facility]) Fluconazole 150 MG Oral Tablet fluconazo le 150 mg tablet TAKE 1 TABLET BY MOUTH TODAY AND CAN REPEAT IN 1 WEEK IF SYMPTOMS PERSIST fluconazole 150 mg tablet TAKE 1 TABLET BY MOUTH TODAY AND CAN REPEAT IN 1 WEEK IF SYMPTOMS PERSIST completed fluconazole 150 MG O ral Tablet GIPSY ([facility]) Oseltamivir 75 MG Oral Capsule oseltamivir 75 mg capsu le oseltamivir 75 mg capsule completed oseltamivir 75 MG Oral Capsule GIPSY ([facility]) Bisacodyl 5 MG Delayed Release Oral Tabl et Gentle Laxative (bisacodyl) 5 mg tablet,delayed release TAKE 4 TABLETS TOGETHER DIRECTED PER BOWEL INSTRUCTIONS Gentle Laxative (bisacodyl) 5 mg tablet, delayed release TAKE 4 TABLETS TOGETHER DIRECTED PER BOWEL INSTRUCTIONS completed bisacodyl 5 MG Delayed Release Oral Tablet [facility] ([facility]) Clenpiq 10 mg-3.5 gram-12 gram/160 mL oral solution [id number] completed citric acid 75 MG/ML / magnesium oxide 21.9 MG/ML / picosulfate sodium 0.0625 MG/ML Oral Solution [Clenpiq] [facility] ([facility]) Tri-Lo-Brittney 0.18/0.215/0.25 mg-25 mcg tablet TAKE ONE TABLET BY MOUTH EVERY DAY [id number] completed Tri-Lo-Brittney 0.1 8/0.215/0.25 mg-25 mcg tablet TITUS ([facility]) Omeprazole 20 MG Delayed Release Oral Ca psule omeprazole 20 mg capsule,delayed release TAKE ONE CAPSULE BY MOUTH EVERY DAY omeprazole 20 mg capsule,delayed release TAKE ONE CAPSULE BY MOUTH EVERY DAY completed omeprazole 20 MG Delayed Release Oral Capsule [facility] ([facility]) Triamcinolone Acetonide 1 MG/ML Topical Cream triamcinolone acetonide 0.1 % topical cream APPLY A THIN LAYER TO THE AFFECTED AREA S TWO TIMES A DAY triamcinolone acetonide 0.1 % topical cream APPLY A THIN LAYER TO THE AFFECTED AREA S TWO TIMES A DAY completed triamcinolone acetonide 1 MG/ML Topical Cream TITUS ([facility]) Insurance Providers Payer name Policy type / Coverage type Policy ID Covered green party ID Covered green party's relationship to oocnnor Policy [place] Plan Information MEDICAID M [id number] Self [id number] EXCELL I [id number] Self [id number] Medicaid S [id number] S [id number] Managed Care - [facility] P [id number] S [id number] Managed Care - [facility] P [id number] S [id number] Managed Care - Community Plan [facility] P [id number] S [id number] Medicaid S [id number] S [id number] Managed Care [facility] Community Plan P [id number] S [id number] Managed Care - Community Plan [facility] P [id number] S [id number] Medicaid S [id number] S [id number] Managed Care - [facility] Community Plan P [id number] S [id number] [facility] Commercial Insurance Co. [id number] Self [id number] [facility] Commercial [facility] Co. [id number] Self [id number] RPR- Needs Payer Match [id number] Self [id number] [facility] [place] OPTUM [place] HMO [id number] S [id number] UNHC COMMUNITY PLAN MCDO [id number] SP [id number] [facility] [place] HMO [id number] S [id number] [place] OF [place]ATN 306/806 [id number] SP [id number] BCBS [facility] PLUS BC [id number] S [id number] [employer] BCBS P [id number] S [id number] UNHC COMMUNITY PLAN MCDO [id number] SP [id number] [facility] [id number] SP [id number] [facility] O [id number] S [id number] ANSI-Medicaid [id number] ANSI-Medicaid [id number] [facility] Health Maintenance Organization (HMO) [id number] Self [id number] ANSI-Medicaid [id number] ANSI-Medicaid [id number] [facility] Health Maintenance Organization (HMO) [id number] Self [id number] MEDICAID [id number] SP [id number] [facility] [place] [id number] SP [id number] MEDICAID [place] [id number] S [id number] [facility] MEDICAID [place] HMO [id number] S [id number] [facility] [place] HMO [id number] S [id number] Problems, Conditions, and Diagnoses Code Display Name Description Problem Type Effective Dates Data Source(s) N92.6 [id number] Menstrual period late Problem 07/24/2020 12: 00:00 AM EDT eCW1 ([facility]) [id number] Cough Cough Problem 04/15/2019 12:0 0:00 AM EST - 05/30/2020 12:00:00 AM EST TITUS ([facility]) [id number] Cough Cough Problem 04/15/2019 12:0 0:00 AM [facility] - 05/30/2020 12:00:00 AM EST [facility]ITUS ([facility]) [id number] Cough Cough Problem 04/15/2019 12:0 0:00 AM [facility] - 05/30/2020 12:00:00 AM EST [facility] ([facility]) [id number] Influenza vaccine needed Influenza Vaccine Needed Pro blem 03/16/2019 12:00:00 AM [facility] - 05/30/2020 12:00:00 AM EST TITUS ([facility]) [id number] Influenza vaccine needed Influenza Vaccine Needed Pro blem 03/16/2019 12:00:00 AM EST - 05/30/2020 12:00:00 AM EST [facility] ([facility]) [id number] Influenza vaccine needed Influenza Vaccine Needed Pro blem 03/16/2019 12:00:00 AM EST - 05/30/2020 12:00:00 AM EST [facility] ([facility]) [id number] Syphilis test finding Syphilis Test Finding Problem 05/26/2018 12:00:00 AM EST - 05/30/2020 12:00:00 AM EST [facility] ([facility]) [id number] Syphilis test finding Syphilis Test Finding Problem 05/26/2018 12:00:00 AM EST - 05/30/2020 12:00:00 AM EST [facility] ([facility]) [id number] Syphilis test finding Syphilis Test Finding Problem 05/26/2018 12:00:00 AM EST - 05/30/2020 12:00:00 AM EST [facility] ([facility]) [id number] Hearing finding Hearing Finding Problem 8 12:00:00 AM EDT - 08/10/2020 12:00:00 AM EDT [facility] ([facility]) [id number] Finding related to sleep Finding Related to Sleep Prob melchor 01/21/2018 12:00:00 AM EDT - 08/10/2020 12:00:00 AM EDT [facility] ([facility]) [id number] Perforation of tympanic membrane Perforation of Tympanic Membrane Problem 01/21/2018 12:00:00 AM EDT - 05/30/2020 12:00:00 AM HENNA QURESHI ([facility]) [id number] Hearing finding Hearing Finding Problem 8 12:00:00 AM EDT - 08/10/2020 12:00:00 AM EDT [facility]IT[facility] ([facility]) [id number] Finding related to sleep Finding Related to Sleep Prob melchor 01/21/2018 12:00:00 AM EDT - 08/10/2020 12:00:00 AM EDT [facility]ITUS ([facility]) [id number] Perforation of tympanic membrane Perforation of Tympanic Membrane Problem 01/21/2018 12:00:00 AM EDT - 05/30/2020 12:00:00 AM HENNA QURESHI ([facility]) [id number] Perforation of tympanic membrane Perforation of Tympanic Membrane Problem 01/21/2018 12:00:00 AM EDT - 05/30/2020 12:00:00 AM HENNA QURESHI ([facility]) [id number] Tobacco use and exposure - finding Tobacco Use a nd Exposure - Finding Problem 10/19/2017 12:00:00 AM EDT - 08/10/2020 12:00:00 AM ED Dusty QURESHI ([facility]) [id number] Tobacco use and exposure - finding Tobacco Use a nd Exposure - Finding Problem 10/19/2017 12:00:00 AM EDT - 08/10/2020 12:00:00 AM ED T GIPSY ([facility]) [id number] Finding of esophagus Finding of Esophagus Problem 05/11/2017 12:00:00 AM EST - 08/10/2020 12:00:00 AM EDT [facility]ITUS ([facility]) [id number] Emotional state finding Emotional State Finding Proble m 05/11/2017 12:00:00 AM EST - 08/10/2020 12:00:00 AM EDT GIP[facility] ([facility]) [id number] Finding of esophagus Finding of Esophagus Problem 05/11/2017 12:00:00 AM EST - 08/10/2020 12:00:00 AM EDT [facility] ([facility]) [id number] Emotional state finding Emotional State Finding Proble 05/11/2017 12:00:00 AM EST - 08/10/2020 12:00:00 AM EDT GIPSY ([facility]) Surgeries/Procedures Procedure Description Date Indications Data Source(s) OFFICE OUTPATIENT NEW 45 MINUTES 12/24/2020 12:00:00 A M EDT [facility] ([facility], ) Results ID Date Data Source [id number] 08/10/2020 12:00:00 PM EDT [facility]) Name Value Range Interpretation Code Description Data Nakia rce(s) Supporting Document(s) H pylori qualitative IgG detected negative Abnorma l (applies to non-numeric results) H Pylori Qualitative IgG [facility]) ID Date Data Source [id number] 08/10/2020 12:00:00 PM EDT [facility]) Name Value Range Interpretation Code Description Data Nakia rce(s) Supporting Document(s) glomerular filtration rate > 60.0 >60 Glomerula r Filtration Rate GIPSY ([facility]) glucose, fasting 76 mg/dL 70-100 Glucose, Fasting AT [facility] ([facility]) blood urea nitrogen 10 mg/dL 7-18 Blood Urea Nitro gen GIPSY ([facility]) creatinine for GFR 0.57 mg/dL 0.55-1.30 Creatinine for GF R [facility] ([facility] [facility] sodium level 140 mEq/L 136-145 Sodium Level TITUS ([facility]) chloride level 109 mEq/L 98-107 Above high normal Chloride Level TITUS ([facility]) carbon dioxide level 26 mEq/L 21-32 Carbon Dioxide Level TITUS ([facility]) potassium serum 4.3 mEq/L 3.5-5.1 Potassium Serum ATHE NA ([facility]) anion gap 5 mEq/L 8-16 Below low normal Anion Gap TITUS ( [facility]) calcium level 9.0 mg/dL 8.5-10.1 Calcium Level TITUS ( [facility]) AST/SGOT 15 U/L 7-37 AST/SGOT TITUS ([facility]) ALT/SGPT 21 U/L 12-78 ALT/SGPT TITUS ([facility]) alkaline phosphatase 72 U/L 45-117 Alkaline Phosph atase TITUS ([facility]) bilirubin,total 0.2 mg/dL 0.2-1.0 Bilirubin,total ATHE ([facility]) albumin 3.8 gm/dL 3.2-5.2 Albumin TITUS ([facility]) total protein 7.0 gm/dL 6.4-8.2 Total Protein TITUS ( [facility]) albumin/globulin ratio 1.2-2.2 Albumin/globu tommy Ratio TITUS ([facility]) ID Date Data Source [id number] 08/10/2020 12:00:00 PM EDT TITUS ([facility]) Name Value Range Interpretation Code Description Data Nakia rce(s) Supporting Document(s) white blood count 11.8 10 4.0-10.0 Above high normal White Blood Count TITUS ([facility]) red blood count 5.02 10 4.00-5.40 Red Blood Count ATHE ([facility]) hemoglobin 14.9 g/dL 12.0-15.5 Hemoglobin TITUS ([facility]) mean corpuscular hemoglobin 29.7 pg 27.0-33.0 Mean Cor puscular Hemoglobin TITUS ([facility]) mean corpuscular volume 91.0 fL 80.0-96.0 Mean Corpusc ular Volume TITUS ([facility]) hematocrit 45.7 % 36.0-47.0 Hematocrit TITUS ([facility]) mean corpuscular HGB conc 32.6 g/dL 32.0-36.5 Mean Corpu scular HGB Conc TITUS ([facility]) platelet count, automated 320 10 150-450 Platelet C ount, Automated TITUS ([facility]) red cell distribution width 14.8 % 11.5-14.5 Above high no rmal Red Cell Distribution Width TITUS ([facility]) lymph % 34.7 % 24.0-44.0 Lymph % GIPSY ([facility]) neutrophils % 57.4 % 36.0-66.0 Neutrophils % GIPSY ( [facility]) baso % 0.3 % 0.0-1.0 Baso % GIPSY ([facility]) mono % 4.9 % 2.0-8.0 Gentry % GIPSY ([facility]) eos % 2.4 % 0.0-3.0 Eos % GIPSY ([facility]) nucleated red blood cell % 0.0 % 0-0 Nucleated Red Blood Cell % GIPSY ([facility]) immature granulocyte % 0.3 % 0-3.0 Immature Gran ulocyte % GIPSY ([facility]) lymph # 4.1 10 1.5-5.0 Lymph # GIPSY ([facility]) neutrophils # 6.8 10 1.5-8.5 Neutrophils # GIPSY ( [facility]) mono # 0.6 10 0.0-0.8 Gentry # GIPSY ([facility]) eos # 0.3 10 0.0-0.5 Eos # GIPSY ([facility]) baso # 0.0 10 0.0-0.2 Baso # GIPSY ([facility]) ID Date Data Source CHLAMYDIA, GC & TRICH AMP 06/26/2020 12:00:00 AM EST eCW1 ([facility]) Name Value Range Interpretation Code Description Data Nakia rce(s) Supporting Document(s) NOT DETECTED NEGATIVE eCW1 ([facility]) ID Date Data Source SYPHILIS ANTIBODY (RPR SCREEN) 06/26/2020 12:00:00 AM EST eC W1 ([facility]) Name Value Range Interpretation Code Description Data Nakia rce(s) Supporting Document(s) NONREACTIVE NONREACTIVE eCW1 ([facility]) ID Date Data Source [id number] 06/26/2020 12:00:00 AM EST eCW1 ([facility]) Name Value Range Interpretation Code Description Data Nakia rce(s) Supporting Document(s) eCW1 (Replaced by [facility]) ID Date Data Source HEPATITIS C ANTIBODY INDEX 06/26/2020 12:00:00 AM EST eCW1 ( [facility]) Name Value Range Interpretation Code Description Data Nakia rce(s) Supporting Document(s) < 0.0 <0.8 eCW1 (Replaced by [facility]) ID Date Data Source [id number] 05/29/2020 12:00:00 AM EST [facility] Name Value Range Interpretation Code Description Data Nakia rce(s) Supporting Document(s) SARS-CoV2 Rapid Antigen Negative [facility] This lab was ordered by [facility] and reported by [facility]. ID Date Data Source [id number] 02/16/2020 12:00:00 PM EDT [facility] Name Value Range Interpretation Code Description Data Nakia rce(s) Supporting Document(s) SARS coronavirus 2 RNA [facility] This lab was ordered by [facility] and reported by [facility]. ID Date Data Source [id number] 01/11/2020 12:56:16 PM EDT [facility] Measurements & CalculationsHeight: 64 inches (5 ft. 4 in.) 162.56 cm Weight: 255 pounds 8 oz. 116.14 kg Body Mass Index (BMI): 44.02BMI Interpretation: Morbidly ObeseBody Surface Area (BSA): 2.17Weight Management Education Done (Nutrition/Physical Activity)Vital SignsTemperature: 98.3F tympanic Pulse Rate: 78 beats/minuteRespiratory Rate: 15 respirations/minuteBlood Pressure: 106/71 sitting automaticO2 Saturation: 96% sittingVital Signs performed by: Ramiro Diaz MA, January 11, 2020 1:07 PMInitial Intake Information From: patientRoom #: 12Infectious Disease / Travel ScreeningRecent travel for you or any close contacts? NoHave you had any close contact with anyone diagnosed with or under investigation for COVID-19 (coronavirus)? NoFever? NoRespiratory symptoms: cough, cold, congestion, shortness of breath, difficulty breathing? NoLoss of smell? NoLoss of taste? NoSmoking, Tobacco, Vaping or Smoke Exposure StatusSmoke Status: current every day smokerTobacco Use: YesAdv to Quit: YesDo you vape? NoMenstrual HistoryLast Menstrual Period (LMP): 01/06/2020Any possibility of ? NoComments: pt is not on controlHealthcare HistorySince your last office visit...Have you been admitted to the hospital? NoHave you been to an emergency room (ER) or [facility] ent care clinic? NoHave you seen another healthcare provider? NoHave you seen a dentist? NoIntake performed by: Ramiro Diaz MA, January 11, 2020 12:59 PMRate Your HealthIn general, would you say your health is? Very GoodPain AssessmentAre you currently having any pain which... You would like your provider to address? No Affects your activity level? NoDepression Screening - PHQ-2Over the last two weeks, have you... Had little interest or pleasure in doing things? Not at all Been feeling down, depressed, or hopeless? Not at all PHQ-2 Score: 0Anxiety Screening - ABDIRIZAK-2Over the last two weeks, have you been... Feeling nervous, anxious, or on edge? More than half the days Unable to stop or control worrying? Several days ABDIRIZAK-2 Score: 2Generalized Anxiety Disorder 7-Item Screening (ABDIRIZAK-7)Answer Guide:0 = Not at all1 = Several days2 = Over half the days3 = Nearly every dayOver the last 2 weeks, how often have you been bothered by the following problems?Feeling nervous, anxious, or on edge: 1Not being able to stop or control worryinWorrying too much about different things: 1Trouble relaxinBeing so restless that it's hard to sit still: 0Becoming easily annoyed or irritable: 1Feeling afraid as if something awful might happen: 0Answer Guide:0 = Not difficult at all1 = Somewhat difficult2 = Very difficult3 = Extremely difficultHow difficult have these made it for you to do your work, take care of things at home, or get along with other people? 1GAD-7 Screening Results ABDIRIZAK-2 Score: 2GAD-7 Score: 4Functional Impairment: Somewhat difficultRecommendation: Minimal anxietyScreening, Brief Intervention, & Referral to Treatment (SBIRT)Pre-Screening Questions How many times have you have 4 or more drinks in a day? 0How many times have you used an illegal drug or used a prescription medication for a non-medical reason? 0Performed by: Ramiro Diaz MA, January 11, 2020 1:03 PMPatient History Medical History:anxietydepressionacid refluxSurgical History:open heart surgery when 4 years oldappendix removedFamily History:dad, diabetes, BPmom- fibromyalgiaSocial/Personal History: Age of First Use: 16Advised to Quit/Tobacco Education: YesChief Complaintfollow-up visitHistory of Present Illness (HPI)Telemedicine visit with patient's location at [facility] and provider's location at offsite office. Additional person(s)participating in the visit: n/a. 23 yo female here for a follow up of GERD.Her GERD symptoms continue to be uncontrolled with Pantoprazole 40mg BID and Carafte as well. She still has epigastric pain daily but is not dry heaving anymore. Cannot tolerate elevating HOB but has lost some weight. She will be having an UGI on 02/20.HPI performed by: Geena CABRAL, January 11, 2020 1:09 PMProblem ReviewProblem List was reviewed and/or updated during this visit.Medication Reconciliation & ReviewMedication List was reviewed and/or updated during this visit, including review of any [id number] medications, herbal therapies, and/or supplements.Allergy ReviewAllergy List was reviewed and/or updated during this visit. Patient has no known allergies.Adult Preventive CareProvider Calculated and Reviewed all Clinical Protocols for patient today. Screening Tobacco Screening: Smoking Status: current every day smoker (01/11/2020) Tobacco Use: Currently (01/11/2020) Advised to Quit: Yes (01/11/2020)Labs/Meds/Other Counseling-Nutrition and Physical Activity:BMI Interpretation: Morbidly Obese (01/11/2020) Counseling: Done (01/11/2020) Physical Activity: Done (01/11/2020)Nurses Note 24 female pt here for FUpt reports no pain, no major issues to discuss today.pt reports currently taking all meds with no side effectsPhysical ExamGeneral Appearance: well nourished, well hydrated, no acute distressEyes, External: conjunctivae and lids normal, EOMIRespiratory, Effort: no intercostal retractions or use of accessory musclesGait & Station: normalOrientation: oriented to time, place, and personMood & Affect: no depression, anxiety, or agitationJudgment & Insight: intactRate Your HealthIn general, would you say your health is? Very GoodAssessment & Plan Problems:Assessed:Needs vaccination for influenza (ICD-V04.81) ([id number]) Assessment: Instructions: You have received your flu vaccine today. You cannot get the flu from the vaccine, you may experience mild symptoms of soreness at the injection site or swelling or a bruise, you may use ice to help with the symptoms.Anxiety depression (ICD-300.4) (MEF89-M78.8) Assessment: Instructions: Continue Gabapentin. Your prescriptions have been sent to your preferred pharmacy electronically, please take them as prescribed and report any significant side effects.GERD (ICD-530.81) (JLK45-D06.9) Assessment: Saw GI, is set up for UGI in February. Continue same meds and lifestyle changes for now. Instructions: Continue same meds and follow up with Dr. Varela as instructed.Patient Instructions/Care Plan: Needs vaccination for influenza: You have received your flu vaccine today. You cannot get the flu from the vaccine, you may experience mild symptoms of soreness at the injection site or swelling or a bruise, you may use ice to help with the symptoms.Anxiety depression: Continue Gabapentin. Your prescriptions have been sent to your preferred pharmacy electronically, please take them as prescribed and report any significant side effects.GERD: Continue same meds and follow up with Dr. Varela as instructed. Plan developed in collaboration with patient and/or familyMedications:CARAFATE 1 GM ORAL TABLETFLUTICASONE PROPIONATE 50 MCG/ACT NASAL SUSPENSIONPANTOPRAZOLE SODIUM 40 MG ORAL TBECGABAPENTIN 600 MG ORAL TABLETMedication Changes:Refilled:GABAPENTIN 600 MG ORAL TABLET-1 tab by mouth three times per day Qty: 90[Tablet] Refills: 5 Method: ElectronicRemoved:IBUPROFEN 800 MG ORAL TABLET-1 tab by mouth three times per day as needed for pain Qty: 90[Tablet] Refills: 0Allergies:No Known Allergies (updated 01/11/2020) Orders:Office Visit - Established, Level 3 [CPT-96922AC] Administration of Influenza Virus Vaccine [CPT-G0008] Follow-Up Return to clinic: FIrst week of March for follow up after UGI Clinical Visit Summary CompletedMedications:GABAPENTIN 600 MG ORAL TABLET (GABAPENTIN) 1 tab by mouth three times per day #90[Tablet] x 5 Route:ORAL Entered and Authorized by: Geena CABRAL Method used: Electronically to [facility] (retail) [address] [place] [address] Note to Pharmacy: Route: ORAL; RxID: [id number] IBUPROFEN 800 MG ORAL TABLET (IBUPROFEN) 1 tab by mouth three times per day as needed for pain #90[Tablet] x 0 Route:ORAL Entered by: Geena CABRAL Authorized by: Singh Felix MD Method used: Electronically to [facility] (retail) [address] [place] [address] RxID: [id number] signed by Geena CABRAL on 01/11/2020 at 1:28 PM Adult Questionnaire1) Does the patient have a long-term health problem with heart disease, lung disease, asthma, kidney disease, metabolic disease (e.g., diabetes), anemia, or other blood disorder? No2) Does the patient have allergies to medications, food, a vaccine component, or latex? No3) Does the p atient have cancer, leukemia, AIDS, or any other immune system problem? No4) Does the patient live with or expect to have close contact with a person whose immune system is severely compromised and who must be in protective isolation (e.g., an isolation room of a bone marrow transplant unit)? No5) Does the patient take cortisone, prednisone, other steroids, or anticancer drugs, or has the patient had radiation treatments? No6) During the past year, has the patient received a transfusion of blood or blood products, or been given immune (gamma) globulin or an antiviral drug? No7) For women: Is the patient or is there a chance she could become during the next month? No8) Has the patient ever had a serious reaction to a vaccine in the past? No9) Has the patient had a seizure or a brain or other nervous system problem? No10) Has the patient received any vaccinations in the past 4 weeks? No11) Is the patient older than age 49 years? No12) Is the patient sick today? No13) Vaccine information given and explained to patient? YesVaccines Administered/Entered:Vaccination Group: InfluenzaSeries: 2Vaccination: Flulaval Quadrivalent Intramuscular Suspension Prefilled Syringe 0.5 MLMfr / Lot# / Exp.Date: PerspecSys / [id number] 1Amt. Given / Route / Site: 0.5 mL / IM / Left DeltoidNDC / CVX: [id number] / 150Administered Date: 01/11/2020 13:40VFC Eligibility: Not VFC EligibleVIS Date: 12/16/2018VIS Given / VIS Given On: Yes / 01/11/2020Comments: Administered by: Cheli Cash Assessment & Plan Orders:[id number] - Immo Admin (over 19 yrs), 1st Vaccine [CPT-54821] Name Value Range Interpretation Code Description Data Nakia rce(s) Supporting Document(s) Procedure Social History Code Duration Value Status Description Data Source(s ) Smoking 06/26/2020 12:00:00 AM EST Current Smoker completed Curre nt Smoker eCW1 ([facility]) Smoking 06/26/2020 12:00:00 AM EST Current Smoker completed Curre nt Smoker eCW1 ([facility]) Vital Signs ID Date Data Source UNK Name Value Range Interpretation Code Description Data Source(s) Systolic blood pressure 120 mm[Hg] 120 mm[Hg] M EDJOHNNY ([facility]) Diastolic blood pressure 66 mm[Hg] 66 mm[Hg] [facility] Body height 64 [in_i] 64 [in_i] [facility] ([facility]) 5'4" Body weight 200.00 [lb_av] 200.00 [lb_av] MEDEN T ([facility]) Body mass index (BMI) [Ratio] 34.3 kg/m2 34.3 k g/m2 [facility] ([facility]) [place] body weight 120 [lb_av] 120 [lb_av] MEDEN T ([facility]) Body weight 90.720 kg 90.720 kg [facility] ([facility]) Body surface area Derived from formula 1.96 m2 1.96 m2 [facility] ([facility]) Diastolic blood pressure 72 mm[Hg] 72 mm[Hg] GIPSY ([facility]) Body height 64 [in_i] 64 [in_i] GIPSY ([facility]) Body mass index (BMI) [Ratio] 36 kg/m2 36 kg/ m2 GIPSY ([facility]) Systolic blood pressure 110 mm[Hg] 110 mm[Hg] A THENA ([facility]) Body weight 3360 [oz_av] 3360 [oz_av] TITUS ([facility]) Diastolic blood pressure 84 mm[Hg] 84 mm[Hg] TITUS ([facility]) Body height 64 [in_i] 64 [in_i] TITUS ([facility]) Body mass index (BMI) [Ratio] 36.8 kg/m2 36.8 k g/m2 TITUS ([facility]) Systolic blood pressure 129 mm[Hg] 129 mm[Hg] A THENA ([facility]) Body weight 3430 [oz_av] 3430 [oz_av] TITUS ([facility]) Diastolic blood pressure 84 mm[Hg] 84 mm[Hg] TITUS ([facility]) Body height 64 [in_i] 64 [in_i] TITUS ([facility]) Body mass index (BMI) [Ratio] 36.8 kg/m2 36.8 k g/m2 TITUS ([facility]) Systolic blood pressure 129 mm[Hg] 129 mm[Hg] A THENA ([facility]) Body weight 3430 [oz_av] 3430 [oz_av] TITUS ([facility]) Body weight 221 [lb_av] 221 [lb_av] eCW1 ([facility]) Body weight 100.24 kg 100.24 kg W1 ([facility]) Body height 63 [in_i] 63 [in_i] eCW1 ([facility]) Body mass index (BMI) [Ratio] 39.14 kg/m2 39.14 kg/m2 eCW1 ([facility]) Systolic blood pressure 120 mm[Hg] 120 mm[Hg] e CW1 ([facility]) Diastolic blood pressure 86 mm[Hg] 86 mm[Hg] eCW1 ([facility]) Body height 64 [in_i] 64 [in_i] TITUS ([facility]) Body mass index (BMI) [Ratio] 41.8 kg/m2 41.8 k g/m2 TITUS ([facility]) Body weight 3892 [oz_av] 3892 [oz_av] TITUS ([facility]) Body height 64 [in_i] 64 [in_i] TITUS ([facility]) Body mass index (BMI) [Ratio] 41.8 kg/m2 41.8 k g/m2 TITUS ([facility]) Body weight 3892 [oz_av] 3892 [oz_av] TITUS ([facility]) Body height 64 [in_i] 64 [in_i] TITUS ([facility]) Body mass index (BMI) [Ratio] 41.8 kg/m2 41.8 k g/m2 TITUS ([facility]) Body weight 3892 [oz_av] 3892 [oz_av] TITUS ([facility]) Diastolic blood pressure 80 mm[Hg] 80 mm[Hg] TITUS ([facility]) Body height 64 [in_i] 64 [in_i] TITUS ([facility]) Body mass index (BMI) [Ratio] 41.4 kg/m2 41.4 k g/m2 TITUS ([facility]) Systolic blood pressure 119 mm[Hg] 119 mm[Hg] [facility] Body weight 3856 [oz_av] 3856 [oz_av] TITUS ([facility]) Body height 64 [in_i] 64 [in_i] TITUS ([facility]) Body mass index (BMI) [Ratio] 41.4 kg/m2 41.4 k g/m2 TITUS ([facility]) Diastolic blood pressure 80 mm[Hg] 80 mm[Hg] TITUS ([facility]) Body height 64 [in_i] 64 [in_i] TITUS ([facility]) Body mass index (BMI) [Ratio] 41.4 kg/m2 41.4 k g/m2 TITUS ([facility]) Systolic blood pressure 119 mm[Hg] 119 mm[Hg] A THENA ([facility]) Body weight 3856 [oz_av] 3856 [oz_av] TITUS ([facility]) Systolic blood pressure 119 mm[Hg] 119 mm[Hg] [facility] Diastolic blood pressure 80 mm[Hg] 80 mm[Hg] TITUS ([facility]) Body weight 3856 [oz_av] 3856 [oz_av] TITUS ([facility]) Diastolic blood pressure 80 mm[Hg] 80 mm[Hg] TITUS ([facility]) Body height 64 [in_i] 64 [in_i] TITUS ([facility]) Body mass index (BMI) [Ratio] 41.4 kg/m2 41.4 k g/m2 TITUS ([facility]) Systolic blood pressure 119 mm[Hg] 119 mm[Hg] A THENA ([facility]) Body weight 3856 [oz_av] 3856 [oz_av] TITUS ([facility]) Diastolic blood pressure 71 mm[Hg] 71 mm[Hg] TITUS ([facility]) Body height 64 [in_i] 64 [in_i] TITUS ([facility]) Body mass index (BMI) [Ratio] 44.02 kg/m2 44.02 kg/m2 TITUS ([facility]) Systolic blood pressure 106 mm[Hg] 106 mm[Hg] A THENA ([facility]) Body weight 4088 [oz_av] 4088 [oz_av] TITUS ([facility]) Diastolic blood pressure 71 mm[Hg] 71 mm[Hg] ITTUS ([facility]) Body height 64 [in_i] 64 [in_i] TITUS ([facility]) Body mass index (BMI) [Ratio] 44.02 kg/m2 44.02 kg/m2 TITUS ([facility]) Systolic blood pressure 106 mm[Hg] 106 mm[Hg] A THENA ([facility]) Body weight 4088 [oz_av] 4088 [oz_av] TITUS ([facility]) Body height 64 [in_i] 64 [in_i] [facility] ([facility]) 5'4" Body weight 252.00 [lb_av] 252.00 [lb_av] PRASANNA Montano ([facility]) Body mass index (BMI) [Ratio] 43.3 kg/m2 43.3 k g/m2 [facility] ([facility]) Body weight 114.307 kg 114.307 kg [facility] ([facility]) Systolic blood pressure 134 mm[Hg] 134 mm[Hg] M EDENT ([facility]) Diastolic blood pressure 78 mm[Hg] 78 mm[Hg] [facility] ([facility]) Body height 64 [in_i] 64 [in_i] [facility] ([facility]) 5'4" Body weight 252.00 [lb_av] 252.00 [lb_av] [facility] Body mass index (BMI) [Ratio] 43.3 kg/m2 43.3 k g/m2 [facility] ([facility]) [place] body weight 120 [lb_av] 120 [lb_av] [facility] Body weight 114.307 kg 114.307 kg [facility] ([facility]) Body surface area Derived from formula 2.16 m2 2.16 m2 [facility] ([facility]) Patient Treatment Plan of Care Planned Activity Planned Date Details Description Data Source (s) Triamcinolone Acetonide 1 MG/ML Topical Cream [facility]) Tri-Lo-Brittney 0.18/0.215/0.25 mg-25 mcg tablet TAKE ONE TABLET BY MOUTH EVERY DAY GIPSY ([facility]) Oseltamivir 75 MG Oral Capsule GIPSY ([facility]) Omeprazole 20 MG Delayed Release Oral Capsule GIPSY ([facility]) Ibuprofen 800 MG Oral Tablet [facility]) Bisacodyl 5 MG Delayed Release Oral Tablet [facility]) gabapentin 400 MG Oral Capsule [facility]) Fluconazole 150 MG Oral Tablet [facility]) Clenpiq 10 mg-3.5 gram-12 gram/160 mL oral solution TITUS ([facility]) Clarithromycin 500 MG Oral Tablet [facility]) Amoxicillin 875 MG Oral Tablet TITUS ([facility]) Amoxicillin 500 MG Oral Capsule TITUS ([facility]) Triamcinolone Acetonide 1 MG/ML Topical Cream TITUS ([facility]) Tri-Lo-Brittney 0.18/0.215/0.25 mg-25 mcg tablet TAKE ONE TABLET BY MOUTH EVERY DAY TITUS ([facility]) Oseltamivir 75 MG Oral Capsule TITUS ([facility]) Omeprazole 20 MG Delayed Release Oral Capsule TITUS ([facility]) Ibuprofen 800 MG Oral Tablet TITUS ([facility]) Bisacodyl 5 MG Delayed Release Oral Tablet TITUS ([facility]) gabapentin 400 MG Oral Capsule TITUS ([facility]) Fluconazole 150 MG Oral Tablet TITUS ([facility]) Clenpiq 10 mg-3.5 gram-12 gram/160 mL oral solution TITUS ([facility]) Clarithromycin 500 MG Oral Tablet TITUS ([facility]) Amoxicillin 875 MG Oral Tablet TITUS ([facility]) Amoxicillin 500 MG Oral Tablet TITUS ([facility]) Amoxicillin 500 MG Oral Capsule TITUS ([facility]) Oseltamivir 75 MG Oral Capsule TITUS ([facility]) Omeprazole 20 MG Delayed Release Oral Capsule TITUS ([facility]) Ibuprofen 800 MG Oral Tablet TITUS ([facility]) Bisacodyl 5 MG Delayed Release Oral Tablet TITUS ([facility]) gabapentin 400 MG Oral Capsule TITUS ([facility]) Fluconazole 150 MG Oral Tablet TITUS ([facility]) Clenpiq 10 mg-3.5 gram-12 gram/160 mL oral solution TITUS ([facility]) Clarithromycin 500 MG Oral Tablet TITUS ([facility]) Amoxicillin 875 MG Oral Tablet TITUS ([facility]) Amoxicillin 500 MG Oral Tablet TITUS ([facility]) Amoxicillin 500 MG Oral Capsule TITUS ([facility]) Oseltamivir 75 MG Oral Capsule TITUS ([facility]) Omeprazole 20 MG Delayed Release Oral Capsule TITUS ([facility]) Ibuprofen 800 MG Oral Tablet TITUS ([facility]) Bisacodyl 5 MG Delayed Release Oral Tablet TITUS ([facility]) gabapentin 400 MG Oral Capsule TITUS ([facility]) Fluconazole 150 MG Oral Tablet TITUS ([facility]) Clenpiq 10 mg-3.5 gram-12 gram/160 mL oral solution TITUS ([facility]) Amoxicillin 875 MG Oral Tablet TITUS ([facility])
[2021-02-18 12:11] VITALS: BP 133/78
[2021-02-18] MEDS ORDERED: propofoL 200 MG/20 ML VIAL As Ordered ONE (13:19)
[2021-02-18] MEDS ORDERED: LIDOCAINE 2% 100MG/5ML SDV (FOR ANES.) As Ordered ONE (13:19)
[2021-02-18] MEDS ORDERED: fentaNYL 100 MCG/2 ML INJECTION (J3010) As Ordered ONE (13:20)
--- NOTE | 2021-02-18 20:54 | ECGEPIP ---
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
== END 2021-02-18 14:10 | disposition home or self-care (01) ==
LOC: M OPP 11:54
PROVIDERS: ATTEND Internal Medicine Gastroenterology
DX: R10.13 Epigastric pain (principal); R00.1 Bradycardia, unspecified; Z53.09 Procedure and treatment not carried out because of other contraindication

== ENCOUNTER → 2021-07-29 | Outpatient (CLI) | payer OTHER ==
[~2021-07-29] MED LIST changes: -NS 1,000 ML IV ONE
[2021-07-29 12:34] LABS: THYROID STIMULATING HORMONE 0.599 uIU/ML (0.358-3.740)
[2021-07-29 12:36] LABS: PROLACTIN 4.8 NG/ML
== END ==
LOC: M PLALAB 08:49
PROVIDERS: ATTEND Advanced Practice Midwife
DX: N94.10 Unspecified dyspareunia (principal); N83.209 Unspecified ovarian cyst, unspecified side; N91.5 Oligomenorrhea, unspecified

== ENCOUNTER → 2022-02-21 | Outpatient (REF) | payer OTHER ==
[~2022-02-21] MED LIST changes: +ETON68IM SC; -NEXP1IMP SC
[2022-02-21 17:41] LABS: CHOLESTEROL RISK RATIO 3.396 (<5)
== END ==
LOC: M LAB REF 16:25
PROVIDERS: ATTEND Nurse Practitioner Family
DX: E66.3 Overweight (principal)

== ENCOUNTER → 2022-02-28 | Outpatient (REF) | payer OTHER ==
[2022-02-28 15:31] LABS: GC DNA AMPLIFICATION NEGATIVE (NEGATIVE)
== END ==
LOC: M SFHCWAGY 13:23
PROVIDERS: ATTEND Advanced Practice Midwife
DX: Z11.3 Encounter for screening for infections with a predominantly sexual mode of transmission (principal); Z12.4 Encounter for screening for malignant neoplasm of cervix; Z01.419 Encounter for gynecological examination (general) (routine) without abnormal findings; Z77.9 Other contact with and (suspected) exposures hazardous to health

== ENCOUNTER → 2022-02-28 | Outpatient (CLI) | payer OTHER ==
[2022-02-28 19:40] LABS: HEPATITIS B SURFACE ANTIGEN NEGATIVE (NEGATIVE); HEPATITIS C VIRUS ABY INDEX < 0.0 INDEX (<0.8); HIV 1&2 SCREEN CENTAUR NEGATIVE (NEGATIVE)
[2022-02-28 21:48] LABS: GC DNA AMPLIFICATION NEGATIVE (NEGATIVE)
== END ==
LOC: M PLALAB 14:41
PROVIDERS: ATTEND Advanced Practice Midwife
DX: Z12.4 Encounter for screening for malignant neoplasm of cervix (principal); Z11.3 Encounter for screening for infections with a predominantly sexual mode of transmission

== ENCOUNTER → 2022-05-22 | Outpatient (REF) | payer OTHER ==
[2022-05-23 11:39] LABS: HCG, SERUM QUALITATIVE POSITIVE (NEGATIVE)
== END ==
LOC: M PLALAB 09:51
PROVIDERS: ATTEND Advanced Practice Midwife
DX: N91.2 Amenorrhea, unspecified (principal)

== ENCOUNTER → 2022-07-03 | Outpatient (CLI) | payer OTHER ==
[2022-07-03 17:48] LABS: HEMATOCRIT 39.6 % (36.0-47.0); HEMOGLOBIN 13.7 g/dl (12.0-15.5); MEAN CORPUSCULAR HEMOGLOBIN 31.4 pg (27.0-33.0); MEAN CORPUSCULAR HGB CONC 34.6 g/dl (32.0-36.5); MEAN CORPUSCULAR VOLUME 90.6 fl (80.0-96.0); PLATELET COUNT, AUTOMATED 222 10^3/uL (150-450); RED BLOOD COUNT 4.37 10^6/uL (4.00-5.40); WHITE BLOOD COUNT 10.4 10^3/uL (4.0-10.0)
[2022-07-03 18:46] LABS: HIV 1&2 SCREEN CENTAUR NEGATIVE (NEGATIVE)
== END ==
LOC: M PLALAB 16:03
PROVIDERS: ATTEND Advanced Practice Midwife
DX: Z34.01 Encounter for supervision of normal first pregnancy, first trimester (principal); Z82.8 Family history of other disabilities and chronic diseases leading to disablement, not elsewhere classified

== ENCOUNTER → 2022-07-03 | Outpatient (REF) | payer OTHER | LOC: M PLALAB 15:52 | PROVIDERS: ATTEND Advanced Practice Midwife | DX: Z34.01 Encounter for supervision of normal first pregnancy, first trimester (principal) ==

== ENCOUNTER → 2022-07-24 | Outpatient (REF) | payer OTHER ==
[2022-07-24 13:22] LABS: BASO % 0.2 % (0.0-1.0); EOS # 0.2 10^3/uL (0.0-0.5); EOS % 1.9 % (0.0-3.0); HEMATOCRIT 39.7 % (36.0-47.0); HEMOGLOBIN 13.4 g/dl (12.0-15.5); LYMPH # 2.7 10^3/uL (1.5-5.0); LYMPH % 33.5 % (24.0-44.0); MEAN CORPUSCULAR HEMOGLOBIN 30.9 pg (27.0-33.0); MEAN CORPUSCULAR HGB CONC 33.8 g/dl (32.0-36.5); MEAN CORPUSCULAR VOLUME 91.5 fl (80.0-96.0); MONO # 0.6 10^3/uL (0.0-0.8); MONO % 6.9 % (2.0-8.0); NEUTROPHILS # 4.6 10^3/uL (1.5-8.5); PLATELET COUNT, AUTOMATED 186 10^3/uL (150-450); RED BLOOD COUNT 4.34 10^6/uL (4.00-5.40); WHITE BLOOD COUNT 8.1 10^3/uL (4.0-10.0)
[2022-07-24 13:53] LABS: TOTAL 25(OH) VITAMIN D 25.1 NG/ML (20.0-100.0)
[2022-07-24 13:54] LABS: ALBUMIN 3.5 G/DL (3.2-5.2); ALKALINE PHOSPHATASE 41 U/L (46-116); ALT/SGPT 14 U/L (7.0-40); AST/SGOT 11 U/L (<34); BILIRUBIN,TOTAL 0.4 MG/DL (0.3-1.2); BLOOD UREA NITROGEN 7 MG/DL (9-23); CALCIUM LEVEL 8.7 MG/DL (8.5-10.1); CARBON DIOXIDE LEVEL 25 MMOL/L (20-31); CHLORIDE LEVEL 107 MMOL/L (98-107); CHOLESTEROL LEVEL 178 MG/DL (<200); CHOLESTEROL RISK RATIO 3.04 (<5); CREATININE FOR GFR 0.39 MG/DL (0.55-1.30); FREE T4 1.02 NG/DL (0.89-1.76); GLOMERULAR FILTRATION RATE > 60.0 (>60); GLUCOSE, FASTING 85 MG/DL (60-100); HDL CHOLESTEROL 58.5 MG/DL (>40); LDL CHOLESTEROL 101.9 MG/DL (<100); NON-HDL-C 119.5 MG/DL; POTASSIUM SERUM 4.3 MMOL/L (3.5-5.1); SODIUM LEVEL 140 MMOL/L (136-145); TOTAL PROTEIN 6.1 G/DL (5.7-8.2); TRIGLYCERIDES LEVEL 88 MG/DL (<150)
[2022-07-24 14:13] LABS: HEMOGLOBIN A1c 4.5 % (4.0-6.0)
== END ==
LOC: M LAB REF 12:13
PROVIDERS: ATTEND Nurse Practitioner Family
DX: Z13.228 Encounter for screening for other metabolic disorders (principal)

== ENCOUNTER → 2022-07-31 | Outpatient (REF) | payer OTHER ==
[2022-07-31 22:59] LABS: GC DNA AMPLIFICATION NEGATIVE (NEGATIVE)
== END ==
LOC: M SFHCWAGY 15:43
PROVIDERS: ATTEND Advanced Practice Midwife
DX: Z34.01 Encounter for supervision of normal first pregnancy, first trimester (principal)

== ENCOUNTER → 2022-09-03 | Outpatient (REF) | payer OTHER ==
[~2022-09-03] MED LIST changes: +FLUT50SP17; -FLUTISP
== END ==
LOC: M LAB REF 20:58
PROVIDERS: ATTEND Nurse Practitioner Family
DX: R30.0 Dysuria (principal)

== ENCOUNTER → 2022-09-05 | Outpatient (CLI) | payer OTHER | LOC: M WHC 12:55 | PROVIDERS: ATTEND Advanced Practice Midwife | DX: Z34.82 Encounter for supervision of other normal pregnancy, second trimester (principal); Z3A.20 20 weeks gestation of pregnancy ==

== ENCOUNTER → 2022-10-10 | Outpatient (CLI) | payer OTHER | LOC: M RAD 13:06 | PROVIDERS: ATTEND Advanced Practice Midwife | DX: Z34.82 Encounter for supervision of other normal pregnancy, second trimester (principal) ==

== ENCOUNTER → 2022-10-23 | Outpatient (CLI) | payer OTHER ==
[~2022-10-23] MED LIST changes: +GABA-1171 PO; +MULTTAB20 PO
[2022-10-23 16:21] LABS: HEMATOCRIT 35.1 % (36.0-47.0); HEMOGLOBIN 11.7 g/dl (12.0-15.5); MEAN CORPUSCULAR HEMOGLOBIN 30.2 pg (27.0-33.0); MEAN CORPUSCULAR HGB CONC 33.3 g/dl (32.0-36.5); MEAN CORPUSCULAR VOLUME 90.7 fl (80.0-96.0); PLATELET COUNT, AUTOMATED 193 10^3/uL (150-450); RED BLOOD COUNT 3.87 10^6/uL (4.00-5.40); WHITE BLOOD COUNT 12.8 10^3/uL (4.0-10.0)
[2022-10-23 18:45] LABS: GC DNA AMPLIFICATION NEGATIVE (NEGATIVE)
== END ==
LOC: M PLALAB 12:52
PROVIDERS: ATTEND Advanced Practice Midwife
DX: Z34.02 Encounter for supervision of normal first pregnancy, second trimester (principal)

== ENCOUNTER → 2022-10-31 | Outpatient (CLI) | payer OTHER ==
[~2022-10-31] MED LIST changes: -GABA-1171 PO; -MULTTAB20 PO
== END ==
LOC: M RAD 14:56
PROVIDERS: ATTEND Advanced Practice Midwife
DX: Z34.02 Encounter for supervision of normal first pregnancy, second trimester (principal)

== ENCOUNTER → 2022-11-07 | Outpatient (CLI) | payer OTHER ==
[~2022-11-07] MED LIST changes: +GABA-1171 PO; +MULTTAB20 PO
== END ==
LOC: M RAD 15:09
PROVIDERS: ATTEND Advanced Practice Midwife
DX: Z34.02 Encounter for supervision of normal first pregnancy, second trimester (principal)

== ENCOUNTER 2022-11-09 14:47 | Outpatient (CLI) | payer OTHER ==
[~2022-11-09] VITALS: Ht 162.6 cm; Wt 115.2 kg
[~2022-11-09 14:47] MED LIST changes: -GABA-1171 PO; -MULTTAB20 PO
[2022-11-09 15:14] VITALS: BP 127/67
[2022-11-09] MEDS ORDERED: MULTTAB20 PO (15:25)
[2022-11-09] MEDS ORDERED: GABA-1171 PO (15:25)
[2022-11-09] MEDS ORDERED: LR 800 ML IV ONE (15:30)
[2022-11-09] MEDS ORDERED: LR 1,000 ML IV SCH (16:00)
[2022-11-09 16:20] LABS: BASO % 0.2 % (0.0-1.0); EOS # 0.1 10^3/uL (0.0-0.5); EOS % 1.2 % (0.0-3.0); HEMATOCRIT 37.2 % (36.0-47.0); HEMOGLOBIN 12.6 g/dl (12.0-15.5); LYMPH # 2.4 10^3/uL (1.5-5.0); LYMPH % 20.6 % (24.0-44.0); MEAN CORPUSCULAR HEMOGLOBIN 29.9 pg (27.0-33.0); MEAN CORPUSCULAR HGB CONC 33.9 g/dl (32.0-36.5); MEAN CORPUSCULAR VOLUME 88.2 fl (80.0-96.0); MONO # 0.7 10^3/uL (0.0-0.8); MONO % 5.7 % (2.0-8.0); NEUTROPHILS # 8.2 10^3/uL (1.5-8.5); NEUTROPHILS % 71.5 % (36.0-66.0); PLATELET COUNT, AUTOMATED 207 10^3/uL (150-450); RED BLOOD COUNT 4.22 10^6/uL (4.00-5.40); WHITE BLOOD COUNT 11.5 10^3/uL (4.0-10.0)
[2022-11-09 18:18] LABS: GC DNA AMPLIFICATION NEGATIVE (NEGATIVE)
== END 2022-11-09 17:11 | disposition home or self-care (01) ==
LOC: M LDO 14:47
PROVIDERS: ATTEND Obstetrics & Gynecology
DX: O26.893 Other specified pregnancy related conditions, third trimester (principal); N89.8 Other specified noninflammatory disorders of vagina; O36.5930 Maternal care for other known or suspected poor fetal growth, third trimester, not applicable or unspecified; Z3A.29 29 weeks gestation of pregnancy

== ENCOUNTER → 2022-11-14 | Outpatient (CLI) | payer OTHER ==
[~2022-11-14] MED LIST changes: +GABA-1171 PO; +MULTTAB20 PO
== END ==
LOC: M WHC 14:55
PROVIDERS: ATTEND Advanced Practice Midwife
DX: Z34.02 Encounter for supervision of normal first pregnancy, second trimester (principal)

== ENCOUNTER → 2022-11-28 | Outpatient (CLI) | payer OTHER | LOC: M WHC 15:06 | PROVIDERS: ATTEND Advanced Practice Midwife | DX: Z34.82 Encounter for supervision of other normal pregnancy, second trimester (principal) ==

== ENCOUNTER → 2022-12-05 | Outpatient (CLI) | payer OTHER | LOC: M WHC 15:07 | PROVIDERS: ATTEND Advanced Practice Midwife | DX: O36.5990 Maternal care for other known or suspected poor fetal growth, unspecified trimester, not applicable or unspecified (principal) ==

== ENCOUNTER → 2022-12-12 | Outpatient (CLI) | payer OTHER | LOC: M WHC 15:09 | PROVIDERS: ATTEND Advanced Practice Midwife | DX: O36.5930 Maternal care for other known or suspected poor fetal growth, third trimester, not applicable or unspecified (principal) ==

== ENCOUNTER → 2022-12-16 | Outpatient (REF) | payer OTHER | LOC: M PLALAB 14:11 | PROVIDERS: ATTEND Obstetrics & Gynecology | DX: Z34.93 Encounter for supervision of normal pregnancy, unspecified, third trimester (principal) ==

== ENCOUNTER → 2022-12-19 | Outpatient (CLI) | payer OTHER | LOC: M WHC 14:41 | PROVIDERS: ATTEND Obstetrics & Gynecology | DX: O36.5990 Maternal care for other known or suspected poor fetal growth, unspecified trimester, not applicable or unspecified (principal) ==

== ENCOUNTER → 2022-12-26 | Outpatient (CLI) | payer OTHER | LOC: M WHC 14:41 | PROVIDERS: ATTEND Obstetrics & Gynecology | DX: O36.5990 Maternal care for other known or suspected poor fetal growth, unspecified trimester, not applicable or unspecified (principal) ==

== ENCOUNTER 2022-12-30 11:28 | Outpatient (CLI) | payer OTHER ==
[~2022-12-30] VITALS: Ht 162.6 cm; Wt 121.5 kg
[2022-12-30] MEDS ORDERED: FAMO40TA3 PO (12:05)
== END 2022-12-30 13:49 | disposition home or self-care (01) ==
LOC: M LDO 11:28
PROVIDERS: ATTEND Specialist
DX: O26.893 Other specified pregnancy related conditions, third trimester (principal); R51.0 Headache with orthostatic component, not elsewhere classified; Z3A.37 37 weeks gestation of pregnancy
CPT/HCPCS: 59025; G0463

== ENCOUNTER → 2023-01-02 | Outpatient (CLI) | payer OTHER ==
[~2023-01-02] MED LIST changes: +ACET325C5 PO
== END ==
LOC: M WHC 14:38
PROVIDERS: ATTEND Obstetrics & Gynecology
DX: O36.5990 Maternal care for other known or suspected poor fetal growth, unspecified trimester, not applicable or unspecified (principal)

== ENCOUNTER 2023-01-06 19:37 | Inpatient (IN) | payer OTHER ==
[~2023-01-06] VITALS: Ht 160 cm; Wt 122.7 kg
[~2023-01-06 19:37] MED LIST changes: -ACET325C5 PO
[2023-01-06] MEDS ORDERED: ACET325C5 PO (19:45)
[2023-01-06 19:51] VITALS: BP 130/66
[2023-01-06] MEDS ORDERED: OXYTOCIN DRIP 30 UNITS in IV 1 EA IV PRN (19:55)
[2023-01-06] MEDS ORDERED: LIDOCAINE 1% MDV 20ML VIAL INFIL PRN (19:55)
[2023-01-06] MEDS: miSOPROStol 50MCG 1/2 TABLET SL SCH (20:26)
[2023-01-06 20:27] VITALS: BP 124/72
[2023-01-06 20:42] LABS: HEMATOCRIT 36.5 % (36.0-47.0); HEMOGLOBIN 12.2 g/dl (12.0-15.5); MEAN CORPUSCULAR HEMOGLOBIN 28.6 pg (27.0-33.0); MEAN CORPUSCULAR HGB CONC 33.4 g/dl (32.0-36.5); MEAN CORPUSCULAR VOLUME 85.7 fl (80.0-96.0); PLATELET COUNT, AUTOMATED 270 10^3/uL (150-450); RED BLOOD COUNT 4.26 10^6/uL (4.00-5.40); WHITE BLOOD COUNT 15.2 10^3/uL (4.0-10.0)
[2023-01-06 21:31] VITALS: BP 127/83
[2023-01-06 23:10] VITALS: BP 130/81
[2023-01-07] VITALS (44 sets, daily range): BP systolic 79–137; BP diastolic 48–76
[2023-01-07] MEDS: miSOPROStol 50MCG 1/2 TABLET SL SCH ×2 (01:30→05:31)
[2023-01-07] MEDS ORDERED: OXYTOCIN DRIP 30 UNITS in IV 1 EA IV SCH (09:25)
[2023-01-07] MEDS: FAMOTIDINE 20 MG TAB PO SCH ×2 (10:22→21:00)
[2023-01-07] MEDS ORDERED: NALBUPHINE HCL (10 MG/ML) 100MG/10ML MDV IV ONE (10:55)
[2023-01-07] MEDS ORDERED: PROMETHAZINE 25MG/ML 1ML VIAL IV ONE (10:55)
[2023-01-07] MEDS: LR 1,000 ML IV SCH ×2 (11:03→18:24)
[2023-01-07 18:50] LABS: HEMATOCRIT 35.2 % (36.0-47.0); HEMOGLOBIN 11.8 g/dl (12.0-15.5); MEAN CORPUSCULAR HEMOGLOBIN 28.7 pg (27.0-33.0); MEAN CORPUSCULAR HGB CONC 33.5 g/dl (32.0-36.5); MEAN CORPUSCULAR VOLUME 85.6 fl (80.0-96.0); PLATELET COUNT, AUTOMATED 264 10^3/uL (150-450); RED BLOOD COUNT 4.11 10^6/uL (4.00-5.40); WHITE BLOOD COUNT 13.8 10^3/uL (4.0-10.0)
[2023-01-07] MEDS ORDERED: ePHEDrine SULFATE 25 MG/5 ML(5MG/ML) SYRINGE IVP PRN (19:35)
[2023-01-07] MEDS ORDERED: LR 500 ML IV PRN (19:35)
[2023-01-07] MEDS ORDERED: ONDANSETRON 4MG 2ML VIAL IV PRN (19:35)
[2023-01-07] MEDS ORDERED: FENTANYL/ROPIVACAINE/NACL BAG 100 ML EPIDURAL SCH (19:35)
[2023-01-07] MEDS ORDERED: diphenhydrAMINE 50MG/ML VIAL IV PRN (19:35)
[2023-01-07] MEDS ORDERED: EPIDURAL/PCA KEYS XX PRN (19:35)
[2023-01-07] MEDS ORDERED: NALOXONE INJ 0.4MG/1ML VIAL IV PRN (19:35)
[2023-01-08] VITALS (18 sets, daily range): BP systolic 99–132; BP diastolic 49–69; TEMP 98.5; O2SAT 95–99
[2023-01-08] MEDS ORDERED: ceFAZolin SOD 3 GM IV Place Holder IV ONE (00:05)
[2023-01-08] MEDS ORDERED: TRANEXAMIC ACID INJection 1,000 MG in NS 100 ML IV PRN (00:05)
[2023-01-08] MEDS ORDERED: OXYTOCIN DRIP 30 UNITS in IV 1 EA IV PRN ×4 (00:05)
[2023-01-08] MEDS ORDERED: CARBOPROST TROMETHAMINE 250 MCG/ML AMP IM PRN (00:05)
[2023-01-08] MEDS ORDERED: OXYTOCIN INJ 10UNITS/ML 1ML VIAL IM PRN (00:05)
[2023-01-08] MEDS ORDERED: NALOXONE INJ 0.4MG/1ML VIAL IV PRN ×4 (00:20→01:15)
[2023-01-08] MEDS ORDERED: METOCLOPRAMIDE INJ 10MG/2ML VIAL IV PRN ×2 (00:20→01:15)
[2023-01-08] MEDS ORDERED: SLF 3 ML SYR IV SCH ×2 (00:20→01:15)
[2023-01-08] MEDS ORDERED: diphenhydrAMINE 50MG/ML VIAL IV PRN ×2 (00:20→01:15)
[2023-01-08] MEDS ORDERED: **NOTE PATIENT COMMENT** MISC XX SCH ×2 (00:20→01:15)
[2023-01-08] MEDS ORDERED: ONDANSETRON 4MG 2ML VIAL IV PRN ×2 (00:20→01:15)
[2023-01-08] MEDS ORDERED: ceFAZolin SOD 2 GM in IV 1 EA IV ONE (01:00)
[2023-01-08] MEDS ORDERED: AZITHROMYCIN INJ 500 MG, VIAL MATE ADAPTER 1 EACH in NS 250 ML IV ONE (01:00)
[2023-01-08] MEDS ORDERED: ceFAZolin SOD 1 GM in D5W MINI-BAG PLUS 50 ML IV ONE (01:00)
[2023-01-08] MEDS ORDERED: BICITRA 30ML SOLN UDC PO ONE (01:00)
[2023-01-08] MEDS ORDERED: fentaNYL 100 MCG/2 ML INJECTION IV PRN (01:15)
[2023-01-08] MEDS ORDERED: ONDANSETRON 4MG 2ML VIAL As Ordered ONE (01:18)
[2023-01-08] MEDS ORDERED: LIDOCAINE 2% W/EPINEPHRINE 20ML VIAL **PRES FREE As Ordered ONE (01:18)
[2023-01-08] MEDS ORDERED: MORPHINE PRES-FREE INJ 10 MG/10 ML VIAL As Ordered ONE (01:20)
[2023-01-08] MEDS ORDERED: OXYTOCIN 30UNITS IN 0.9% NaCl 500ML IV BAG As Ordered ONE ×2 (01:57→03:26)
[2023-01-08] MEDS ORDERED: ACETAMINOPHEN 1000MG 100ML IV BAG As Ordered ONE (02:02)
[2023-01-08] MEDS ORDERED: KETOROLAC 60MG 2ML VIAL As Ordered ONE (02:04)
[2023-01-08] MEDS ORDERED: DOCUSATE SODIUM 100MG CAPSULE PO PRN (02:35)
[2023-01-08] MEDS ORDERED: RHOGAM 300MCG (1500IU) INJ IM SCH (02:35)
[2023-01-08] MEDS ORDERED: SIMETHICONE 80MG CHEW TAB PO PRN (02:35)
[2023-01-08] MEDS ORDERED: OXYTOCIN DRIP 30 UNITS in IV 1 EA IV SCH (02:35)
[2023-01-08] MEDS: oxyCODONE 5MG TAB PO PRN ×2 (04:45→15:25)
[2023-01-08] MEDS: ACETAMINOPHEN 500 MG TAB PO SCH ×3 (07:55→19:16)
[2023-01-08] MEDS: KETOROLAC 30 MG/ML 1ML VIAL IV SCH ×3 (07:56→19:17)
[2023-01-08] MEDS: PRENATAL VITAMINS CHEWABLE TABLET PO SCH (09:02)
[2023-01-08] MEDS: GABAPENTIN 100 MG CAP PO SCH ×2 (09:02→21:21)
[2023-01-08] MEDS ORDERED: ACET-683 PO (11:10)
[2023-01-08] MEDS ORDERED: OXYC-517 PO (11:10)
[2023-01-08] MEDS ORDERED: IBUP-1022 PO (11:10)
[2023-01-08] MEDS ORDERED: COLA100C5 PO (11:10)
[2023-01-09] MEDS: oxyCODONE 5MG TAB PO PRN ×3 (00:18→19:35)
[2023-01-09 02:00] VITALS: BP 139/63; O2SAT 99
[2023-01-09] MEDS: IBUPROFEN 600MG TAB PO SCH ×4 (02:47→20:36)
[2023-01-09] MEDS: ACETAMINOPHEN 500 MG TAB PO SCH ×4 (02:47→20:36)
[2023-01-09 05:53] VITALS: BP 122/76; O2SAT 99
[2023-01-09 06:33] LABS: HEMATOCRIT 28.3 % (36.0-47.0); MEAN CORPUSCULAR HEMOGLOBIN 28.6 pg (27.0-33.0); MEAN CORPUSCULAR HGB CONC 32.5 g/dl (32.0-36.5); MEAN CORPUSCULAR VOLUME 87.9 fl (80.0-96.0); PLATELET COUNT, AUTOMATED 221 10^3/uL (150-450); RED BLOOD COUNT 3.22 10^6/uL (4.00-5.40); WHITE BLOOD COUNT 10.2 10^3/uL (4.0-10.0)
[2023-01-09 06:48] LABS: HEMOGLOBIN 9.2 g/dl (12.0-15.5)
[2023-01-09] MEDS: PRENATAL VITAMINS CHEWABLE TABLET PO SCH (09:20)
[2023-01-09] MEDS: GABAPENTIN 100 MG CAP PO SCH ×2 (09:21→20:35)
[2023-01-09 10:00] VITALS: BP 130/69; O2SAT 99
[2023-01-09 14:00] VITALS: BP 128/73; O2SAT 98
[2023-01-09 18:00] VITALS: BP 112/59; O2SAT 99
[2023-01-09 22:00] VITALS: BP 124/58; O2SAT 96
[2023-01-10 02:00] VITALS: BP 122/57; O2SAT 98
[2023-01-10] MEDS: IBUPROFEN 600MG TAB PO SCH ×2 (02:01→08:23)
[2023-01-10] MEDS: ACETAMINOPHEN 500 MG TAB PO SCH ×2 (02:02→08:24)
[2023-01-10 05:56] VITALS: BP 122/58; O2SAT 100
[2023-01-10] MEDS: PRENATAL VITAMINS CHEWABLE TABLET PO SCH (08:24)
[2023-01-10] MEDS: oxyCODONE 5MG TAB PO PRN (08:25)
[2023-01-10] MEDS ORDERED: MEASLES,MUMPS,RUBELLA VACCINE INJ (MMR-II) SC.IMMUN ONE (09:00)
[2023-01-10 10:00] VITALS: BP 119/62; O2SAT 99
[2023-01-10] MEDS: GABAPENTIN 100 MG CAP PO SCH (10:02)
== END 2023-01-10 11:55 | disposition home or self-care (01) | DRG 540 ==
LOC: M LDI 19:37 → M OBS 01-08 04:00
PROVIDERS: ADMIT Specialist; ATTEND Specialist
PROC: 3E0P7VZ Introduction of Hormone into Female Reproductive, Via Natural or Artificial Opening (ICD-10-PCS; 2023-01-06)
PROC: 3E033VJ Introduction of Other Hormone into Peripheral Vein, Percutaneous Approach (ICD-10-PCS; 2023-01-07)
PROC: 10D00Z1 Extraction of Products of Conception, Low, Open Approach (ICD-10-PCS; principal; 2023-01-08 02:23)
DX: O13.4 Gestational [pregnancy-induced] hypertension without significant proteinuria, complicating childbirth (principal); O36.5990 Maternal care for other known or suspected poor fetal growth, unspecified trimester, not applicable or unspecified; Z37.0 Single live birth; Z3A.38 38 weeks gestation of pregnancy; O76 Abnormality in fetal heart rate and rhythm complicating labor and delivery; Z79.899 Other long term (current) drug therapy

== ENCOUNTER → 2023-09-11 | Outpatient (REF) | payer OTHER ==
[~2023-09-11] MED LIST changes: +ACET-683 PO; +ACET325C5 PO; +COLA100C5 PO; -FLUT50SP17; +FLUTISP; +OXYC-517 PO
[2023-09-11 13:29] LABS: BASO % 0.4 % (0.0-1.0); EOS # 0.3 10^3/uL (0.0-0.5); EOS % 3.2 % (0.0-3.0); HEMATOCRIT 42.8 % (36.0-47.0); HEMOGLOBIN 14.6 g/dl (12.0-15.5); LYMPH # 2.5 10^3/uL (1.5-5.0); LYMPH % 32.6 % (24.0-44.0); MEAN CORPUSCULAR HEMOGLOBIN 31.4 pg (27.0-33.0); MEAN CORPUSCULAR HGB CONC 34.1 g/dl (32.0-36.5); MONO # 0.6 10^3/uL (0.0-0.8); MONO % 7.2 % (2.0-8.0); NEUTROPHILS # 4.4 10^3/uL (1.5-8.5); NEUTROPHILS % 56.3 % (36.0-66.0); PLATELET COUNT, AUTOMATED 219 10^3/uL (150-450); RED BLOOD COUNT 4.65 10^6/uL (4.00-5.40); WHITE BLOOD COUNT 7.7 10^3/uL (4.0-10.0)
[2023-09-11 13:39] LABS: HEMOGLOBIN A1c 4.9 % (4.0-6.0)
[2023-09-11 14:01] LABS: ALBUMIN 3.5 G/DL (3.2-5.2); ALKALINE PHOSPHATASE 56 U/L (46-116); ALT/SGPT 16 U/L (7.0-40); AST/SGOT < 8 U/L (<34); BILIRUBIN,TOTAL 0.6 MG/DL (0.3-1.2); BLOOD UREA NITROGEN 7 MG/DL (9-23); CALCIUM LEVEL 9.1 MG/DL (8.5-10.1); CARBON DIOXIDE LEVEL 24 MMOL/L (20-31); CHLORIDE LEVEL 108 MMOL/L (98-107); CHOLESTEROL LEVEL 175 MG/DL (<200); CHOLESTEROL RISK RATIO 4.17 (<5); CREATININE FOR GFR 0.62 MG/DL (0.55-1.30); GLOMERULAR FILTRATION RATE > 60.0 (>60); GLUCOSE, FASTING 78 MG/DL (60-100); HDL CHOLESTEROL 41.9 MG/DL (>40); LDL CHOLESTEROL 111.7 MG/DL (<100); MAGNESIUM LEVEL 1.9 MG/DL (1.8-2.4); NON-HDL-C 133.1 MG/DL; POTASSIUM SERUM 4.3 MMOL/L (3.5-5.1); SODIUM LEVEL 140 MMOL/L (136-145); TOTAL PROTEIN 6.5 G/DL (5.7-8.2); TRIGLYCERIDES LEVEL 107 MG/DL (<150)
[2023-09-11 14:22] LABS: THYROID STIMULATING HORMONE 0.984 uIU/ML (0.55-4.78)
[2023-09-11 14:23] LABS: TOTAL 25(OH) VITAMIN D 51.6 NG/ML (20.0-100.0)
== END ==
LOC: M LAB REF 12:39
PROVIDERS: ATTEND Nurse Practitioner Family
DX: E55.9 Vitamin D deficiency, unspecified (principal); E66.3 Overweight

== ENCOUNTER → 2023-09-30 | Outpatient (CLI) | payer OTHER | LOC: M WUC 15:24 | PROVIDERS: ATTEND Nurse Practitioner Family | DX: M54.50 Low back pain, unspecified (principal) ==

== ENCOUNTER → 2024-08-05 | Outpatient (REF) | payer OTHER ==
[~2024-08-05] MED LIST changes: +GABA-1172 PO; -GABA-282 PO
[2024-08-05 14:58] LABS: BASO % 0.3 % (0.0-1.0); EOS # 0.1 10^3/uL (0.0-0.5); EOS % 1.3 % (0.0-3.0); HEMATOCRIT 46.2 % (36.0-47.0); HEMOGLOBIN 15.4 g/dl (12.0-15.5); LYMPH % 27.8 % (24.0-44.0); MEAN CORPUSCULAR HEMOGLOBIN 31.2 pg (27.0-33.0); MEAN CORPUSCULAR HGB CONC 33.3 g/dl (32.0-36.5); MEAN CORPUSCULAR VOLUME 93.7 fl (80.0-96.0); MONO # 0.7 10^3/uL (0.0-0.8); MONO % 6.5 % (2.0-8.0); NEUTROPHILS # 6.8 10^3/uL (1.5-8.5); NEUTROPHILS % 63.8 % (36.0-66.0); PLATELET COUNT, AUTOMATED 242 10^3/uL (150-450); RED BLOOD COUNT 4.93 10^6/uL (4.00-5.40); WHITE BLOOD COUNT 10.7 10^3/uL (4.0-10.0)
[2024-08-05 15:03] LABS: HEMOGLOBIN A1c 4.9 % (4.0-6.0)
[2024-08-05 15:40] LABS: ALBUMIN 3.5 G/DL (3.2-5.2); ALKALINE PHOSPHATASE 47 U/L (35-104); ALT/SGPT 12 U/L (7.0-40); AST/SGOT 10 U/L (<34); BILIRUBIN,TOTAL 0.4 MG/DL (0.3-1.2); BLOOD UREA NITROGEN 8 MG/DL (9-23); CALCIUM LEVEL 9.3 MG/DL (8.5-10.1); CARBON DIOXIDE LEVEL 27 MMOL/L (20-31); CHLORIDE LEVEL 107 MMOL/L (98-107); CHOLESTEROL LEVEL 194 MG/DL (<200); CHOLESTEROL RISK RATIO 3.03 (<5); CREATININE FOR GFR 0.69 MG/DL (0.55-1.30); GLOMERULAR FILTRATION RATE > 60.0 (>60); GLUCOSE, FASTING 69 MG/DL (60-100); HDL CHOLESTEROL 63.9 MG/DL (>40); LDL CHOLESTEROL 101.9 MG/DL (<100); NON-HDL-C 130.1 MG/DL; POTASSIUM SERUM 4.6 MMOL/L (3.5-5.1); SODIUM LEVEL 141 MMOL/L (136-145); THYROID STIMULATING HORMONE 0.892 uIU/ML (0.55-4.78); TOTAL PROTEIN 6.6 G/DL (5.7-8.2); TRIGLYCERIDES LEVEL 141 MG/DL (<150)
== END ==
LOC: M LAB REF 14:20
PROVIDERS: ATTEND Nurse Practitioner Family
DX: E66.3 Overweight (principal)

== ENCOUNTER 2025-01-26 20:31 | Emergency (ER) | payer OTHER ==
[~2025-01-26] VITALS: Ht 162.6 cm; Wt 75.3 kg
[~2025-01-26 20:31] MED LIST changes: -IBUP-1022 PO; +IBUP600T42 PO
[2025-01-26] MEDS ORDERED: FAMO40TA3 (20:41)
[2025-01-26] MEDS ORDERED: BUPR1FIL3 (20:41)
[2025-01-26] MEDS ORDERED: INDO50CA91 PO (22:41)
[2025-01-26 23:05] VITALS: BP 131/79; TEMP 97.2; O2SAT 97
[2025-01-26] MEDS: INDOMETHACIN 25 MG CAP PO ONE (23:09)
== END 2025-01-26 23:04 | disposition home or self-care (01) ==
LOC: M ED 20:31
DX: G56.01 Carpal tunnel syndrome, right upper limb (principal); K21.9 Gastro-esophageal reflux disease without esophagitis; F17.200 Nicotine dependence, unspecified, uncomplicated; Z79.899 Other long term (current) drug therapy

== ENCOUNTER → 2025-02-13 | Outpatient (CLI) | payer OTHER ==
[~2025-02-13] MED LIST changes: +BUPR1FIL3; +FAMO40TA3; +INDO50CA91 PO
[2025-02-13 18:25] LABS: ALT/SGPT 10 U/L (7.0-40); AST/SGOT 13 U/L (<34); CALCIUM LEVEL 8.8 MG/DL (8.5-10.1); CARBON DIOXIDE LEVEL 26 MMOL/L (20-31); CHLORIDE LEVEL 108 MMOL/L (98-107); CHOLESTEROL LEVEL 177 MG/DL (<200); CHOLESTEROL RISK RATIO 3.13 (<5); CREATININE FOR GFR 0.56 MG/DL (0.55-1.30); GLOMERULAR FILTRATION RATE > 90.0 (>60); LDL CHOLESTEROL 105.2 MG/DL (<100); NON-HDL-C 120.6 MG/DL; POTASSIUM SERUM 4.1 MMOL/L (3.5-5.1); SODIUM LEVEL 142 MMOL/L (136-145); TOTAL 25(OH) VITAMIN D 55.8 NG/ML (20.0-100.0); TRIGLYCERIDES LEVEL 77 MG/DL (<150)
[2025-02-13 18:26] LABS: VITAMIN B12 LEVEL 208 PG/ML (211-911)
[2025-02-13 18:53] LABS: ESTIMATED AVERAGE GLUCOSE 97.0 MG/DL (60-110)
== END ==
LOC: M WUC 14:44
PROVIDERS: ATTEND Student in an Organized Health Care Education/Training Program
DX: R20.2 Paresthesia of skin (principal); Z68.28 Body mass index [BMI] 28.0-28.9, adult; E55.9 Vitamin D deficiency, unspecified